=== PATIENT | male | born 1970 | race Caucasian/White ===

== ENCOUNTER 2020-03-29 11:06 | Day surgery (SDC) | payer OTHER ==
[2020-03-25 08:23] VITALS: BMI 44.9
[~2020-03-29 11:06] MED LIST: LACTATED RINGERS 1,000 ML IV SCH; LIDOCAINE 1% (10MG/ML) FOR IV START INTRADERMA PRN
[2020-03-29 11:39] VITALS: TEMP 97.7
[2020-03-29] MEDS ORDERED: PROPOFOL 10 MG/ML 20 ML VIAL IV ONE (12:08)
--- NOTE | 2020-03-29 12:38 | P.PCN ---
Date of Procedure: 03/29/20 Description of Procedure: BRIEF HISTORY: Patient is a 49-year-old male presenting for outpatient colonoscopy for screening for malignant neoplasm of the colon. No prior colonoscopy reported. No change in bowel habits, abdominal pain or family history of colon cancer. PROCEDURE PERFORMED: Colonoscopy with polypectomy. PREOPERATIVE DIAGNOSIS: Screening for malignant neoplasm colon, no prior colonoscopy. ESTIMATED BLOOD LOSS: Minimal. IV sedation per Anesthesia. PROCEDURE: After informed consent was obtained, the patient, was brought into the endoscopy unit. IV sedation was administered by Anesthesia under continuous monitoring. Digital rectal examination was normal. Initially the Olympus CF-190 flexible video colonoscope was then inserted in the rectum, gradually advanced into the cecum without any difficulty. Careful examination was performed as the scope was gradually being withdrawn. Ileocecal valve and the appendiceal orifice were visualized and appeared normal. Prep was excellent. Mucosa of the cecum, ascending colon, transverse colon, descending colon, sigmoid colon, and rectum appeared normal. Diminutive polyps measuring 2-3 mm in size removed with cold forcep polypectomy from the cecum, sigmoid colon, and 2 from the descending colon. A few scattered diverticula noted throughout the colon. Retroflexion was performed in the rectum and no lesions were seen. The patient tolerated the procedure well. IMPRESSION: 4 diminutive polyps removed with cold forcep polypectomy, from the sigmoid, cecum and 2 from the descending colon. Mild pandiverticulosis. RECOMMENDATIONS: Findings of this examination were discussed with the patient. Okay to resume diet. Okay to resume medications. Await pathology from polypectomy. Would recommend repeat colonoscopy in 5 years for personal history of colon polyp.
[2020-03-29 12:41] VITALS: RESP 20
[2020-03-29 12:55] VITALS: BP 114/80; PULSE 80
== END 2020-03-29 13:29 | disposition home or self-care (01) ==
LOC: ORWHC2ENDO 11:06
PROVIDERS: ATTEND Internal Medicine
DX: Z12.11 Encounter for screening for malignant neoplasm of colon (principal); D12.0 Benign neoplasm of cecum; D12.4 Benign neoplasm of descending colon; D12.5 Benign neoplasm of sigmoid colon; K57.30 Diverticulosis of large intestine without perforation or abscess without bleeding; I10 Essential (primary) hypertension; F17.210 Nicotine dependence, cigarettes, uncomplicated; Z79.899 Other long term (current) drug therapy
CPT/HCPCS: 88305; 45380; J2704

== ENCOUNTER → 2023-03-13 | Outpatient (CLI) | payer OTHER ==
[2023-03-13 15:27] LABS: ALT 32 U/L (10-49); AST 20 U/L (14-35); Chol/HDL Ratio 3.83 Ratio; LDL Cholesterol,Calculated 77.2 mg/dL (0.0-131.0)
== END | disposition home or self-care (01) ==
LOC: LABWHC1 08:03
PROVIDERS: ATTEND Internal Medicine Interventional Cardiology
DX: E78.2 Mixed hyperlipidemia (principal)
CPT/HCPCS: 36415; 80061; 84450; 84460

== ENCOUNTER 2023-03-15 11:28 | Day surgery (SDC) | payer OTHER ==
[~2023-03-15 11:28] MED LIST changes: +ACETAMINOPHEN TAB 500 MG TAB PO PRN; +DEXAMETHASONE SOD PHOSPHATE 4 MG/ML 1 ML VIAL IV ONE; +HEPARIN SODIUM,PORCINE/PF 5,000 UNIT/0.5 ML SYRINGE SQ PRN; +HYDROmorphone 0.5 MG/0.5 ML SYRINGE IVP PRN; -LIDOCAINE 1% (10MG/ML) FOR IV START INTRADERMA PRN; +ONDANSETRON 4 MG/2 ML VIAL IVP ONE; +ONDANSETRON 4 MG/2 ML VIAL IVP PRN; +ceFAZolin 3 GM in SODIUM CHLORIDE 0.9% 100 ML IVPB PRN
[2023-03-15] MEDS ORDERED: MIDAZOLAM 2 MG/2 ML VIAL IVP ONE (12:37)
[2023-03-15] MEDS ORDERED: fentaNYL (PF) 50 MCG/ML 2 ML AMP IVP ONE (12:37)
[2023-03-15] MEDS ORDERED: TAMSULOSIN 0.4 MG CAP.ER.24H PO STA (12:41)
[2023-03-15] MEDS ORDERED: fentaNYL (PF) 50 MCG/ML 2 ML AMP ONE (12:52)
[2023-03-15] MEDS ORDERED: ROCURONIUM 10 MG/ML (5 ML VIAL) IV ONE (12:52)
[2023-03-15] MEDS ORDERED: GLYCOPYRROLATE 0.2 MG/ML 2 ML VIAL ONE (12:52)
[2023-03-15] MEDS ORDERED: SUCCINYLCHOLINE CHLORIDE 200 MG/10 ML VIAL IV ONE (12:52)
[2023-03-15] MEDS ORDERED: SODIUM CHLORIDE 0.9% (PF) 10 ML VIAL ONE (12:52)
[2023-03-15] MEDS ORDERED: LIDOCAINE 4% LTA KIT (4 ML) TOPICAL ONE (12:52)
[2023-03-15] MEDS ORDERED: NEOSTIGMINE 1 MG/ML 10 ML VIAL ONE (12:52)
[2023-03-15] MEDS ORDERED: ROPIVACAINE 5 MG/ML 30 ML VIAL ONE (12:52)
[2023-03-15] MEDS ORDERED: LIDOCAINE 2% INJ 20 MG/ML (2 ML VIAL) ONE (12:52)
[2023-03-15] MEDS ORDERED: PROPOFOL 10 MG/ML 20 ML VIAL IV ONE (12:52)
[2023-03-15] MEDS ORDERED: HYDROmorphone (PF) 1 MG/ML ONE (12:52)
--- NOTE | 2023-03-15 12:52 | P.ANPRN ---
Procedure Note - Anesthesia - Nerve Block Performed Bilateral Rectus Abdominis Single Time Out Performed: Yes Date of Procedure: 03/15/23 Procedure Start Time: 12:36 Procedure Stop Time: 12:50 Location of Patient: PreOp Indication: Analgesia, Requested by Surgeon Specifically requested for management of pain by DrMarcy: Pippa Kaplan Sedation Type: Sedate with meaningful contact maintained Preparation: Sterile Prep Position: Supine Needle Types: Pajunk Needle Gauge: 21 Ultrasound used to visualize needle placement: Yes Ultrasound used to observe medication spread: Yes Injectate: 0.5% Ropivacaine (see comment for volume) (50 mL (25 mL/side)) Blood Aspirated: No Pain Paresthesia on Injection Noted: No Resistance on Injection: Normal Image Stored and Saved: Yes Events: Uneventful and Well Tolerated
[2023-03-15 12:57] LABS: Basophils # (A) 0.1 k/uL (0-0.2); Basophils % (A) 0 %; Eosinophils # (A) 0.6 k/uL (0-0.7); Eosinophils % (A) 3 %; HCT 45.8 % (39.0-53.0); HGB 14.8 gm/dL (13.0-17.5); Lymphocytes # (A) 3.4 k/uL (1.0-4.8); Lymphocytes % (A) 20 %; MCH 29.6 pg (25.0-35.0); MCHC 32.3 g/dL (31.0-37.0); MCV 91.6 fL (80.0-100.0); Mean Platelet Volume 6.9; Monocytes # (A) 1.1 k/uL (0-1.0); Monocytes % (A) 6 %; Neutrophils # (A) 11.7 k/uL (1.3-7.7); Neutrophils % (A) 69 %; Platelet Count 323 k/uL (150-450); RDW 12.8 % (11.5-15.5)
[2023-03-15 13:10] LABS: African American GFR (CKD) >90 (>60 ml/min/1.73 sqM); Anion Gap 7 mmol/L; Blood Urea Nitrogen 11 mg/dL (9-20); Calcium 9.2 mg/dL (8.4-10.2); Carbon Dioxide 28 mmol/L (22-30); Chloride 104 mmol/L (98-107); Glucose 96 mg/dL (74-99); Non-African American GFR(CKD) >90 (>60 ml/min/1.73 sqM); Potassium 4.7 mmol/L (3.5-5.1); Sodium 139 mmol/L (137-145)
[2023-03-15] MEDS ORDERED: BUPIVACAINE (PF) 0.25% 30 ML VIAL SQ ONE (13:24)
[2023-03-15] MEDS ORDERED: LACTATED RINGERS 1,000 ML IV ONE (14:15)
[2023-03-15 14:51] VITALS: TEMP 96.9
--- NOTE | 2023-03-15 15:41 | P.OP ---
Date of Procedure: 03/15/23 Description of Procedure: No mesh due to leukocytosis, white blood cell count over 17,000. Large incarcerated mass 15 cm x 6 cm resected from umbilical area Fatty liver disease SURGEON: PIPPA KAPLAN MD PREOPERATIVE DIAGNOSES: 1. Initial umbilical hernia with incarceration 2. Diabetes type 2, non-insulin dependent 3. Morbid obesity due to excess calories, BMI 39.6 4. Obstructive sleep apnea POSTOPERATIVE DIAGNOSES: 1. Initial umbilical hernia with incarceration, 1 cm 2. Diabetes type 2, non-insulin dependent 3. Morbid obesity due to excess calories, BMI 39.6 4. Obstructive sleep apnea OPERATION: 1. Robotic-assisted da Kaylan Xi laparoscopic repair of initial incarcerated umbilical hernia 1 cm without mesh ANESTHESIA: General with local ESTIMATED BLOOD LOSS: 10 mL. SPECIMENS: None. COMPLICATIONS: None. INDICATIONS: The patient is a 54-year-old male who presents with initial umbilical hernia. Surgical intervention with laparoscopic versus robotic and open techniques were reviewed. Placement of mesh was also reviewed. Benefits and risks were thoroughly described. Informed consent was obtained. DESCRIPTION OF PROCEDURE: The patient was brought into the operating room and laid in supine position. After general induction, the abdomen had been prepped and draped in standard sterile fashion. Ioban draping was also placed. Prior to incision, a timeout protocol was confirmed with surgical team regarding the patient's name including procedures to be performed. The robot was primed prior to the procedure. A field block using local anesthetic was placed along hernia site including the proposed port sites. Initial incision was made with an #11 blade along the left upper quadrant. A 0 degree 5 mm laparoscopic trocar entry was performed. Diagnostic laparoscopy demonstrated an incarcerated umbilical hernia. Three 8 mm trocars were placed along the right lateral abdominal wall. Placements of the ports were 15 cm from the target anatomy and 9 cm apart. The Call Britanniai Xi robot was previously primed, prepped and draped then docked along the left side of the patient. I then sat at the robot Da Kaylan Xi console where working arms of the robot were scissors, needle mobile lounge driver or operator, and graspers placed by the registered dental assistant rda. Attention was brought to the umbilicus where an incarcerated umbilical hernia was identified containing fat and omentum. The incarcerated contents was reduced as the peritoneal fat was cleaned from the abdominal wall. Next, hemostasis was checked with cautery. The hernia defect of 1-cm was oversewn using #1 VLOC with fascial imbrication 3. A final endoscopic imaging was obtained. All instruments and pneumoperitoneum were evacuated from the abdominal cavity. The da Kaylan Xi robot was undocked from the patient. I re-scrubbed into the case for closure of incisions. At the umbilicus, the skin was oversewn with 4-0 Monocryl. An umbilical dressing using 4 x 4 and Tegaderm was placed. The incisions were reapproximated using 4-0 Monocryl in an interrupted subcuticular fashion. Exofin liquid glue was applied to the skin after cleansing the skin with normal saline and dilute hydrogen peroxide. An abdominal binder was placed. At the end of the procedure, needle, sponge, and instrument count had been verified correct by surgical rn. The patient was taken to the postanesthesia care unit in stable condition. FINDINGS: 1. Initial incarcerated umbilical hernia, 1 cm with contents of pre-peritoneal fat. Plan - Discharge Summary Discharge Rx Participant: No New Discharge Prescriptions: New Acetaminophen Tab [Tylenol Tab] 1,000 mg PO Q6HR PRN #30 tablet PRN Reason: Pain Simethicone [Gas-X] 125 mg PO AC-TID PRN #20 capsule PRN Reason: Pain Ibuprofen [Motrin] 600 mg PO Q8HR PRN #30 tab PRN Reason: Pain Continue hydroCHLOROthiazide 25 mg PO QAM Loratadine 10 mg PO DAILY Aspirin [Adult Low Dose Aspirin EC] 81 mg PO DAILY Atorvastatin [Lipitor] 20 mg PO QAM Discontinued Ibuprofen [Motrin] 400 - 800 mg PO Q6H PRN PRN Reason: Pain Discharge Medication List Aspirin [Adult Low Dose Aspirin EC] 81 mg PO DAILY 03/09/23 [History] Atorvastatin [Lipitor] 20 mg PO QAM 03/09/23 [History] Loratadine 10 mg PO DAILY 03/09/23 [History] hydroCHLOROthiazide 25 mg PO QAM 03/09/23 [History] Acetaminophen Tab [Tylenol Tab] 1,000 mg PO Q6HR PRN #30 tablet 03/15/23 [Rx] Ibuprofen [Motrin] 600 mg PO Q8HR PRN #30 tab 03/15/23 [Rx] Simethicone [Gas-X] 125 mg PO AC-TID PRN #20 capsule 03/15/23 [Rx] Follow up Appointment(s)/Referral(s): Pippa Kaplan MD [STAFF PHYSICIAN] - 03/27/23 (TELEHEALTH __ DR CALLS YOU) Patient Instructions/Handouts: Laparoscopic Herniorrhaphy (IP), Ventral Hernia Repair (DC), Abdominal Binder (DC), *Surgery [facility] - Managing Your Pain After Surgery Without Opioids Activity/Diet/Wound Care/Special Instructions: TELEHEALTH - WILL CALL YOU BETWEEN 8 am to 8 pm No lifting for 4 pounds in 4 weeks, Apr 15 Using antibacterial soap. May shower. No bathtub soaks for 2 weeks, Mar 29 Wear abdominal binder daily for comfort except for showering. Use ice along incisions for today to prevent swelling. Use Tylenol, simethicone and ibuprofen or Aleve scheduled for the next 24-48 hours for best pain relief. Discharge Disposition: HOME SELF-CARE
[2023-03-15 16:05] VITALS: BP 148/86; PULSE 83; RESP 18
== END 2023-03-15 16:35 | disposition home or self-care (01) ==
LOC: OR 11:28
PROVIDERS: ATTEND Surgery Plastic and Reconstructive Surgery
DX: K42.0 Umbilical hernia with obstruction, without gangrene (principal); E11.9 Type 2 diabetes mellitus without complications; E66.01 Morbid (severe) obesity due to excess calories; Z68.39 Body mass index [BMI] 39.0-39.9, adult; G47.33 Obstructive sleep apnea (adult) (pediatric); I10 Essential (primary) hypertension; E78.5 Hyperlipidemia, unspecified; Z96.651 Presence of right artificial knee joint; Z79.1 Long term (current) use of non-steroidal anti-inflammatories (NSAID); Z79.82 Long term (current) use of aspirin; Z79.899 Other long term (current) drug therapy
CPT/HCPCS: 49592; 64488; 80048; 85025; 88302; J2250; J0330; J1100; J2710; J0690; J2405; J3010; J1170; J2795; J2704; J1644; J2001; 64486

== ENCOUNTER → 2024-06-16 | Outpatient (CLI) | payer MEDICARE, OTHER ==
--- NOTE | 2024-06-16 09:24 | CTL ---
EXAMINATION TYPE: CT Low Dose Lung DATE OF EXAM ORDERED: 06/16/2024 HISTORY: 54-year-old male with Z1 2.2, smoker with a 20 pack-year history. Lung cancer screening CT DLP: 94.[address] CTDI: 2.6 mGy Automated exposure control for dose reduction was used. SCREENING VISIT: COMPARISON: TECHNIQUE: Low dose computed tomography scan was performed through the chest at 1 mm thick sections a nd reconstructed images in multiple planes at 1 mm and [address] DIAGNOSTIC QUALITY: Satisfactory FINDINGS: The heart is normal size without pericardial effusion. Proximal LAD and proximal circumflex coronary calcifications are present. There are normal caliber with conventional branching anatomy. No thoracic lymphadenopathy by CT size criteria. Minimal emphysematous change. No consolidation or pleural effusion. 3 mm posterior right upper lobe p ulmonary nodule remains unchanged. No new suspicious pulmonary nodule. Visualized upper abdomen shows no gross abnormality. Bones: DISH throughout the thoracic spine. IMPRESSION: 1. LungRADS 2, benign. No new suspicious pulmonary nodules. 2. COPD with minimal emphysema. CT LUNG RAD AND CT CHEST RECOMMENDATION: Lung-Rad 2 Benign Appearance or Behavior: Continue annual sc reening with LDCT in 12 months. S Modifier (other clinically significant findings): None [facility], , 06/16/2024 9:22 AM
== END | disposition home or self-care (01) ==
LOC: RADCTMAIN 06:44
PROVIDERS: ATTEND Family Medicine
CPT/HCPCS: 71271

== ENCOUNTER → 2024-10-21 | Outpatient (CLI) | payer MEDICARE, OTHER | END | disposition home or self-care (01) | LOC: LABPAT 11:06 | PROVIDERS: ATTEND Orthopaedic Surgery | DX: Z01.812 Encounter for preprocedural laboratory examination (principal); M48.061 Spinal stenosis, lumbar region without neurogenic claudication; Z22.322 Carrier or suspected carrier of Methicillin resistant Staphylococcus aureus | CPT/HCPCS: 86850; 86900; 86901; 87070 ==

== ENCOUNTER 2024-10-23 10:38 | Day surgery (SDC) | payer MEDICARE, OTHER ==
[2024-10-21 10:09] VITALS: BMI 41.3
[~2024-10-23 10:38] MED LIST changes: -ACETAMINOPHEN TAB 500 MG TAB PO PRN; -DEXAMETHASONE SOD PHOSPHATE 4 MG/ML 1 ML VIAL IV ONE; -HEPARIN SODIUM,PORCINE/PF 5,000 UNIT/0.5 ML SYRINGE SQ PRN; +LIDOCAINE 1% (10MG/ML) FOR IV START INTRADERMA PRN; +MIDAZOLAM 2 MG/2 ML VIAL IV PRN; -ONDANSETRON 4 MG/2 ML VIAL IVP ONE; +TRANEXAMIC 1,000 MG/100ML-NACL 1,000 MG in SALINE 1 100ML.BAG IVPB PRN; -ceFAZolin 3 GM in SODIUM CHLORIDE 0.9% 100 ML IVPB PRN; +fentaNYL (PF) 50 MCG/ML 2 ML AMP IVP PRN
[2024-10-23] MEDS: IV FLUID CONTINUATION 1,000 ML IV ONE ×2 (11:20)
[2024-10-23] MEDS: GABAPENTIN 300 MG CAP PO PRN (11:28)
[2024-10-23] MEDS: ACETAMINOPHEN TAB 500 MG TAB PO PRN (11:28)
[2024-10-23] MEDS: ONDANSETRON 4 MG/2 ML VIAL IVP ONE (11:30)
[2024-10-23] MEDS: DEXAMETHASONE SOD PHOSPHATE 4 MG/ML 1 ML VIAL IV ONE (11:31)
--- NOTE | 2024-10-23 12:19 | P.HPOR ---
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 Imaging reveals L4-5 spondylosis with moderate to severe central and foraminal stenosis, particularly pronounced on the left side, with ligamental overgrowth and facet hypertrophy causing lateral recess stenosis. The patient reports significant functional limitations, including difficulty with walking, ddx-[id number]-[id number] transitions, and stairs, occasionally requiring crutch assistance. Conservative management with NSAIDs and heat/ice therapy has been unsuccessful. Given the progressive neurological symptoms and imaging findings, surgical intervention via L4-5 laminoforaminotomy LEFT MIS has been recommended, pending medical clearance from PCP. Patient has been thoroughly counseled on surgical risks and benefits. DEMOGRAPHICS: Age: 54 year Height: 6'1" Weight: 319 lbs BP:126/75 BMI: 42.09 kg/m2 Occupation: [employer]: lumbar pain VAS: 4 HISTORY: Mr. Kuhn presents to the office today, 09/18/24, for an evaluation of his lumbar pain. Patient reports pain across the low back that radiates into the bilateral lower extremities. He also notes a sharp pain in his tailbone area. Patient states is pain is increased with walking, sit to stand, sitting, and stairs. He notes weakness of the bilateral legs that makes it difficult to walk. Patient states he has had to use crutches at times due to his lower extremity weakness. He has trialed below listed treatment modalities without resolution of his symptoms. Patient is currently taking Motrin and Tylenol and using heat/ice without resolution of his symptoms. He ambulates independently today. * Patient denies any f/c/sob/cp, perineal numbness or tingling, bowel, or bladder incontinence/retention. * The patients past social, medical, family, surgical history, as well as review of systems, have been reviewed. Please refer to the History and Physical form that has been scanned into our electronic medical record system. * 16 points review of systems completed and as stated in HPI, all other systems reviewed are negative. PAST TREATMENTS: PAST IMAGING: -YES, xray and MRI - TRAUMA RELATED: -NO - WORK RELATED: -NO - PT IN LAST 6 MONTHS: -YES, 1 month ago with no relief - PHYSICIAN DIRECTED HOME EXERCISE PROGRAM: -YES - ACTIVITY MODIFICATION: -YES - MEDICATIONS: -YES, Motrin and Tylenol - ALTERNATIVE INTERVENTIONS (CHIROPRACTIC, ACCUPUNCTURE, MASSAGE, RICE): -YES, chirporactic treatment 4 weeks ago with no relief - BRACING: -NO - INJECTIONS (JOANNA, TF, RFA): -YES, [address] Walker with some relief - MEDICAL HISTORY: Past Medical History: REVIEWED STATED IN CHART Past Surgical History: REVIEWED STATED IN CHART Social History: REVIEWED STATED IN CHART SMOKING: Never smoker ETOH: None SUBSTANCES: None Family History: REVIEWED STATED IN CHART P1 Current Medications: Rx: IBUPROFEN 200mg ORAL , Ref: 0 Instructions: Take 4 ORAL as needed. Rx: indomethacin ER 75 mg capsule,extended release Ref: 0 Instructions: take 1 capsule (75 mg) by oral route 2 times per day with food as needed Rx: meloxicam 15 mg tablet Ref: 2 Instructions: take 1 tablet (15 mg) by oral route once daily as needed P1 PHYSICAL EXAM: General: AOX3, NAD, Well hydrate, well nourished, in no acute distress HEENT: No lumps or masses Extremities: No color changes, no pooling INTEGUMENT: Appearance: Normal color and turgor Surgical Incisions: N/A Hairy Patches: ABSENT Dorsal Skin Dimples: Normal [employer] spots: ABSENT PALPATION: TTP Midline: NO Paracervical: NO Parathoracic: NO Paralumbar: YES SIJ TESTING (Juan Manuel's, FABER4, Compression, Distraction, Thigh Thrust, Hip Thrust): TESTED * POSITIVE FINDINGS: NEGATIVE FINDINGS: Juan Manuel's, FABER4, Compression, Distraction, Thigh Thrust, Hip Thrust POSTURAL BALANCE: Coronal: BALANCED Sagittal: BALANCED Shoulder height: LEVEL Pelvic Girdle: LEVEL ROM AND APPEARANCE: Neck: UNRESTRICTED Lumbar: RESTRICTED WITH PAIN Shoulders: Symmetrical Hips: Symmetrical Knees: Symmetrical Hands: Symmetrical Feet: Symmetrical VASCULAR STATUS: PALPABLE PULSES B/L UE AND LE 2/4 RAD/ULNAR/DP/PT Edema: NONE NEUROLOGICAL EXAMINATION: Mental Status: Awake, alert, fully oriented with normal attention, concentration, and memory. Fluent appropriate speech. CRANIAL NERVES: I: Olfactory not assessed. II: Visual acuity normal, no visual field deficit noted with confrontation. III, IV: Normal pupillary reflexes & intact extraocular movements without nystagmus. V, : Intact symmetrical facial sensation. VII: Intact symmetrical facial motor movement: Hearing intact. IX, X: Intact gag, swallow, & normal voice. XI: Sternocleidomastoid, trapezius function intact. XII: Tongue midline with normal movements. TENSIONING: * L'HERMITTE'S SIG:NEG SPURLUNG'S SIGN:NEG UPPER EXTREMITY TENSIONING SIGNS: NEG CUBITAL TUNNEL COMPRESSION:NEG TINELS AT WRIST:NEG STRAIGH LEG RAISE:POS CONTRALATERAL STRAIGHT LEG RAISE: NEG MOTOR EXAM (0-5/5, NT) Muscle appearance: Symmetrical, without signs of atrophy or dystrophy UPPER EXTREMITY RIGHT LEFT Shoulder Abduction 5 5 Biceps 5 5 Triceps 5 5 Wrist Extension 5 5 Hand Intrinsics 5 5 Tailor Garment Fitter 5 5 LOWER EXTREMITY RIGHT LEFT Hip Flexion 4+ 4+ Knee Extension 4+ 4+ Knee Flexion 4+ 4 Dorsiflexion 4 4 Plantarflexion 4 4 EHL 4- 4 FHL 4 4 REFLEXES (0-4/2, NT): RIGHT LEFT Bicep 2 2 Brachioradialis 2 2 Triceps 2 2 Patellar 2 2 Achilles 2 2 PATHOLOGICAL REFLEXES: RIGHT LEFT JONES'S ABSENT ABSENT CLONUS ABSENT ABSENT BABINSKI ABSENT ABSENT RECTAL TONE: INTACT/NT SENSATION (0-4, NT): Sensation intact to LT and Pain * C5-T1 distribution BUE * L2-S2 distribution BLE *Exceptions below* DERMATOMAL DEFICIT/RADICULAR PATTERN: L4-5 BLE GAIT AND FUNCTIONAL EVALUATION: AMBULATORY AID Crutches ROMBERG'S TEST INTACT HAND AND FINGER DEXTERITY INTACT YES DYSDIADOCHOKINESIA EXAM NEG B/L YES TOE/HEEL WALK INTACT WITH GOOD BALANCE NO SQUAT AND RISE W/O ASSISTANCE TO 60 DEG KNEE FLEXION NO SINGLE LEG STANCE NOT ABLE [place]G NEG IMAGING: XRAY Date: 09/18/24 Location: [facility] Region: Lumbar and Pelvis Views: MV IMAGES ARE REVIEWED WITH THE PATIENT IN OFFICE AND DEMONSTRATE THE FOLLOWING: FINDINGS: L4-5 SPONDYLOSIS WITH DISC HEIGHT COLLAPSE, FACET ARTHROSIS AND FLATTENED LL DUE TO THE COLLAPSE. THERE IS MODERATE L5-S1 SPONDYLOSIS NOTED WELL. NO ACUTE FRACTURES NOTED. NO LESIONS NOTED. PELVIS SHOWS CONGRUENT LEVEL PELVIS. NO FRACTURES. MRI Date: 06/02/24 Location: [facility] Region: Lumbar Contrast: N IMAGES ARE REVIEWED WITH THE PATIENT IN OFFICE AND DEMONSTRATE THE FOLLOWING: FINDINGS: L4-5 SPONDYLOSIS WITH MODERATE TO SEVERE CENTRAL AND FORAMINAL STENOSIS RELATED TO LIGAMENTAL OVERGROWTH, FACET HYPERTROPHY CAUSING LATERAL RECESS STENOSIS WELL. THERE IS DISC COLLAPSE CAUSING DEGENERATIVE DISC HERNIATION AND CENTRAL STENOSIS RELATED TO THIS THAT IS MODERATE TO SEVERE. THERE IS GREATER LEFT THAN RIGHT FORAMINAL STENOSIS. L5-S1 SHOWS MILD STENOSSIS WITH SPONDYLOTIC FFEATURES. L1-4 SHOWS REASONABLE DISC HEIGHTS AND ALIGNMENT. NO FRACTURES OR LESIONS NOTED. IMPRESSION: It was my pleasure to have seen and examined Erwin. I reviewed the patient's clinical syndrome, physical findings, and imaging studies during the appointment today. It is my impression that the patient has a diagnosis of. 1.L4-5 spondylosis with stenosis 2.Left lower extremity radiculopathy 3. Low back pain PLAN: DISCUSSION: -I have discussed with the patient their clinical signs and symptoms, imaging, and treatment options. We have discussed risks, benefits, potential outcomes and natural course as pertains top their issues. The patient understands and would like to proceed as follows below: SURGICAL RECOMMENDATION -L4-5 laminoforaminotomy LEFT MIS THERAPIES -Cont. with home exercises and home PT exercises as able -Cont. with Heat/Ice as warranted -Cont. with supplementation Vit D, Vit C, Ca2+, High protein diet -OK for massage or other alternative treatment modalities as able. If it exacerb ates your sx do not continue ACTIVITY -Recommend walking up to 30 min 2x daily on a flat easy surface with good support. -WORK STATUS: Patient to remain off work 4-6 weeks post-operation MEDICATIONS -Take as directed -Cont. home medications as directed by your PCP. Check with your PCP for any medication interactions or issues if needed. IMAGING -N/A INJECTIONS -N/A Spine Surgery Risk Review Mr. Kuhn is presenting for evaluation of lumbar pain. It was my pleasure to have seen and examined Mr. Kuhn. In our visit today we have had a chance to go over subjective complaints, physical examination findings and treatments including the natural course history without intervention and various interventional options. The patients imaging demonstrates: XRAY AND MRI FINDINGS SHOW L4-5 SPONDYLOSIS WITH MODERATE TO SEVERE CENTRAL AND FORAMINAL STENOSIS RELATED TO LIGAMENTAL OVERGROWTH, FACET HYPERTROPHY CAUSING LATERAL RECESS STENOSIS WELL. THERE IS DISC COLLAPSE CAUSING DEGENERATIVE DISC HERNIATION AND CENTRAL STENOSIS RELATED TO THIS THAT IS MODERATE TO SEVERE. THERE IS GREATER LEFT THAN RIGHT FORAMINAL STENOSIS. L5-S1 SHOWS MILD STENOSSIS WITH SPONDYLOTIC FFEATURES. L1-4 SHOWS REASONABLE DISC HEIGHTS AND ALIGNMENT. NO FRACTURES OR LESIONS NOTED. On physical exam, Mr. Kuhn demonstrates: Patient reports pain across the low back that radiates into the bilateral lower extremities. He also notes a sharp pain in his tailbone area. Patient states is pain is increased with walking, sit to stand, sitting, and stairs. He notes weakness of the bilateral legs that makes it hard to walk. Patient states he even has to use crutches at times due to his lower extremity weakness. Patient is currently taking Motrin and Tylenol and suing heat/ice without resolution of his symptoms. He ambulates independently today. I have explained to the patient that as their condition progresses it will cause further neurological deficits and eventual paralysis. Based on the patients imaging, physical exam, and the rapid progression and disabling nature of their symptoms, at this time I recommend surgery in the form of a: L4-5 lami noforaminotomy LEFT MIS. I discussed the risk and benefits of this procedure at length with Mr. Kuhn. The patient agreed to considered pursuing the procedure abovementioned. Prior to surgery, she should follow up with her PCP (Cardio, ID, IM etc) for clearance. Questions were invited and answered, and the patient wishes to proceed as outlined below. Currently, I am recommendin.L4-5 laminoforaminotomy LEFT MIS 2.Follow up with PCP for surgical clearance 3.Review of surgical risks and benefits as well as an educational packet on the proposed surgical procedure. Risks: All surgical procedures come with inherent risks, including those related to positioning, anesthesia, intraoperative findings, and postoperative complications. It is important to understand that surgery does not come with any guarantee of a successful outcome as complications and adverse events are always possible. The patient was given a handout in office today discussing the surgical procedure and risks associated with the intervention, both of which were discussed with the patient. These risks include but are not limited to the following: * Experiencing same, different or even worse symptoms in back, neck, arms, or legs compared to before surgery. Requiring further surgery or other forms of treatment presently or at some time in the future at same or other levels of the intended spine surgery. On an extreme but fortunately relatively rare basis severe complication such as blindness, stroke, heart attack, temporary and/or permanent nerve injury, paralysis, coma, or may occur, sometimes without known explanation. Surgical complications may include but are not limited to risk of infection, fluid accumulation in the surgical dissection site, including a seroma or hematoma, that requires additional surgery, wound drainage, bleeding, new numbness or weakness, vision changes/loss, spinal fluid leakage, non-healing and/or infected incision, headaches, difficulty or inability to swallow, hoarseness, hemopneumothorax, pneumothorax, impotence, retrograde ejaculation, vaginal dryness; injury to nerves, spinal cord, blood vessels, lymphatics or other vital organs (i.e., bowel injury, injury to the great vessels); heterotopic bone formation; complications related to the hardware such as screws, rods, cages including misplaced hardware, device failure, instrumentation at the wrong spine level, hardware fracture/breakage, or hardware loosening; vertebral failure of the spinal column above or below the newly placed hardware; retained surgical instrumentations or devices and the need for further surgery. * Medical risks of the planned spine surgery include but are not limited to generalized Infections to the whole body or local areas outside of the surgical site (sepsis), heart attack, bleeding, anaphylaxis, meningitis, seizu re, epilepsy, hearing loss, burn evans, laceration of the head or other areas of the body, bruising, hypersensitivity of the skin, bladder over distension; allergic reaction; shoulder injury related to positioning; fat, blood and air clots to other areas of the body like heart, lungs, brain; failure of internal organs such as lungs, kidneys, liver and excessive bleeding. If blood transfusions are necessary, note that transfusions may cause intolerance reactions such as anaphylaxis or other complex reactions. Despite best efforts, the results of spine surgery might not heal in terms of bone, soft tissues such as skin, fascia, ligaments, and joints. Additionally, in order to achieve best possible results, spine surgery may be carried out beyond the initially planned levels and involve decompression, fusion including insertion of hardware at levels other than the original intended area of surgical interest change some portions of the procedure in order to ensure the best possible outcomes. With spine surgery and spinal fusion, there are different off label uses of instrumentation (devices, implants and hardware) as well as biological substances (bone morphogenic proteins, demineralized bone matrix) as well as using extra bone from allograft sources (i.e. cadaver bone) or autograft (iliac crest bone, ribs, or the spine itself). The patient has been given information about these practices and their inherent risks and benefits. [facility] is an educational center that serves as a training facility for neurosurgical and orthopedic BUSINESS INTELLIGENCE ADMINISTRATOR and Nursing students. Physician assistants are medically trained surgical providers who function in the outpatient, inpatient, and operating room setting under the direct supervision of the attending surgeon. [facility] has multiple operating rooms with single and overlapping rooms running daily. They currently function under the required guidelines as produced by the [facility] Finance Committee with regards to the overlapping rooms and will continue to comply with changes to this policy as they occur. The requirements include and are complied with as follows: (1) the critical portions of the overlapping rooms will not occur at the same time, (2) the attending physician will be physically present during the critical portions of the procedure and immediately available during the entire case, and (3) a back-up a ttending is designated should the primary attending not be immediately available. The patient has had a chance to review all the listed information, has been given print outs detailing this information, and has had all his/her questions answered to their satisfaction. It was my pleasure to have seen and examined Mr. Kuhn. In our visit today we have had a chance to go over my understanding of our patient's current condition, the natural course history without intervention and various interventional options. Questions were invited and answered, and the patient wishes to proceed as outlined above. I have seen and examined the patient for 25 minutes and we have spent more than 50% of the time in repeat and detailed counseling about the patient's condition, its natural course history with out and as much as can be predicted with surgery and re-review of various surgical treatment options. In conclusion, Mr. Kuhn requested we proceed with the above suggested surgery and are willing to accept risks and limitations of the suggested surgery as nature of the disease process and our best attempts at treatment for the condition. MEDICAL NECESSITY NOTE: Based on objective findings from imaging studies and physical examination, Mr. Kuhn demonstrates significant neurological compromise due to L4-5 spondylosis with moderate to severe central and foraminal stenosis, particularly pronounced on the left side. The patient's condition has resulted in functional decline, manifesting as bilateral lower extremity weakness requiring occasional ambulatory assistance, radiating pain, and difficulty with basic mobility tasks including walking and transitioning from sitting to standing. Conservative management including NSAIDs, heat/ice therapy, and activity modification has failed to provide meaningful symptom relief. The progressive nature of his neurological symptoms, combined with the severity of stenosis demonstrated on imaging, indicates a clear medical necessity for surgical intervention to prevent further neurological deterioration and potential permanent nerve damage. SURGICAL RATIONALE NOTE: The recommended L4-5 laminoforaminotomy LEFT MIS procedure is specifically chosen to address the patient's pathology while minimizing surgical trauma. This targeted decompressive approach will address the left-sided foraminal stenosis that is causing significant neurological compromise while preserving spinal stability. The minimally invasive technique offers advantages including smaller incision, reduced muscle trauma, decreased post-operative pain, and potentially faster recovery compared to traditional open approaches. 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 The progressive nature of symptoms, failed conservative management, and correlation between clinical presentation and imaging findings strongly support this surgical approach as the most appropriate intervention to prevent further neurological deterioration. FOLLOW UP: PRE-OP PLAN AT NEXT VISIT: RECHECK PATIENT EDUCATION: Medications Reviewed: YES In our visit today Mr. Kuhn and I have had a chance to go over my understanding of the patient's current condition, the natural course history without intervention and various interventional options. Questions were invited and answered, and the patient wishes to proceed as outlined above. I will be sure to keep you updated after Mr. Kuhn returns here for further follow-up. Thank you again for your referral. Please do not hesitate to contact me if you have any further questions. Signed and authenticated by: [employer] [facility] [address] [place] [address] [address] [address] . This message is confidential, intended only for the named recipient(s) and may contain information that is privileged or exempt from disclosure under applicable law. If you are not the intended recipient(s), you are notified that the dissemination, distribution or copying of this information is prohibited. If you received this message in error, please notify the sender then delete this message. #Orders: Knee, Lt 2v xray # SIGNED BY Amos Ayala ([email or web address])10/03/2024 10:41A Past Medical History Past Medical History: Hyperlipidemia, Hypertension, Osteoarthritis (OA) History of Any Multi-Drug Resistant Organisms: None Reported Past Surgical History: Hernia Repair, Joint Replacement Additional Past Surgical History / Comment(s): RIGHT KNEE REPLACED @ [facility], [place]. LT TKA, COLONOSCOPY,EGD Past Anesthesia/Blood Transfusion Reactions: No Reported Reaction Smoking Status: Current every day smoker - Past Family History Mother Family Medical History: No Reported History Medications and Allergies Home Medications Medication Instructions Recorded Confirmed Type Aspirin [Adult Low Dose Aspirin EC] 81 mg PO DAILY 03/09/23 10/23/24 History Atorvastatin [Lipitor] 20 mg PO QAM 03/09/23 10/23/24 History hydroCHLOROthiazide 25 mg PO QAM 03/09/23 10/23/24 History Acetaminophen Tab [Tylenol Tab] 1,000 mg PO Q6HR PRN #30 tablet 03/15/23 10/23/24 Rx Ibuprofen [Motrin] 600 mg PO Q8HR PRN #30 tab 03/15/23 10/23/24 Rx Meloxicam [Mobic] 15 mg PO DAILY 10/21/24 10/23/24 History Allergies Allergy/AdvReac Type Severity Reaction Status Date / Time No Known Allergies Allergy Verified 10/23/24 10:52 Physical Examination Osteopathic Statement: *. No significant issues noted on an osteopathic structural exam other than those noted in the History and Physical/Consult.
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
[2024-10-23] MEDS ORDERED: HYDROmorphone (PF) 1 MG/ML ONE (12:39)
[2024-10-23] MEDS ORDERED: PHENYLEPHRINE-0.9% NACL SYG 1,000 MCG/10 ML SYRINGE ONE (12:39)
[2024-10-23] MEDS ORDERED: GLYCOPYRROLATE 0.2 MG/ML 2 ML VIAL ONE (12:39)
[2024-10-23] MEDS ORDERED: fentaNYL (PF) 50 MCG/ML 2 ML AMP ONE (12:39)
[2024-10-23] MEDS ORDERED: TRANEXAMIC 1,000 MG/100ML-NACL PREMIX BAG ONE (12:39)
[2024-10-23] MEDS ORDERED: SUCCINYLCHOLINE CHLORIDE 200 MG/10 ML VIAL IV ONE (12:39)
[2024-10-23] MEDS ORDERED: MIDAZOLAM 2 MG/2 ML VIAL ONE (12:39)
[2024-10-23] MEDS ORDERED: PROPOFOL 10 MG/ML 20 ML VIAL IV ONE (12:39)
[2024-10-23] MEDS ORDERED: ROCURONIUM 10 MG/ML (5 ML VIAL) IV ONE (12:39)
[2024-10-23] MEDS ORDERED: KETAMINE HCL IN 0.9 % NACL 50 MG/5 ML SYRINGE ONE (12:39)
[2024-10-23] MEDS ORDERED: KETOROLAC 30 MG/ML 1 ML VIAL ONE (12:39)
[2024-10-23] MEDS ORDERED: NEOSTIGMINE 1 MG/ML 10 ML VIAL ONE (12:39)
[2024-10-23] MEDS: ceFAZolin 3 GM in SODIUM CHLORIDE 0.9% 100 ML IVPB PRN (12:44)
[2024-10-23] MEDS: ROPIVACAINE/EPI/CLONIDINE/KET 50 ML SYRINGE MISCELLANE PRN (13:19)
[2024-10-23] MEDS: THROMBIN (BOVINE) 5,000 UNIT VIAL TOPICAL ONE (13:19)
[2024-10-23 14:54] VITALS: TEMP 96.9
--- NOTE | 2024-10-23 15:02 | XR ---
Fluoroscopy INDICATION: Pain FINDINGS: Fluoroscopy time: 22 seconds. Total dose area product (DAP) in uGy*m?, mGy*cm? (or similar): 14.877 Images obtained: 6. Images document placement of needle directed towards the lumbar spine IMPRESSION: 1. Documentation of fluoroscopy. [facility], , 10/23/2024 3:00 PM
--- NOTE | 2024-10-23 15:03 | FL ---
Fluoroscopy INDICATION: Pain FINDINGS: Fluoroscopy time: 22 seconds. Total dose area product (DAP) in uGy*m?, mGy*cm? (or similar): 14.877 Images obtained: 0. IMPRESSION: 1. Documentation of fluoroscopy. [facility], , 10/23/2024 3:01 PM
[2024-10-23 16:09] VITALS: RESP 20
[2024-10-23 17:18] VITALS: BP 115/73; PULSE 87
--- NOTE | 2024-10-23 19:01 | P.OP ---
Date of Procedure: 10/23/24 Preoperative Diagnosis: 1.L4-5 spondylosis with stenosis 2.Left lower extremity radiculopathy 3. Low back pain Postoperative Diagnosis: 1.L4-5 spondylosis with stenosis 2.Left lower extremity radiculopathy 3. Low back pain Procedure(s) Performed: 1. 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 Imaging reveals L4-5 spondylosis with moderate to severe central and foraminal stenosis, particularly pronounced on the left side, with ligamental overgrowth and facet hypertrophy causing lateral recess stenosis. The patient reports significant functional limitations, including difficulty with walking, tox-rn-fseef transitions, and stairs, occasionally requiring crutch assistance. Conservative management with NSAIDs and heat/ice therapy has been unsuccessful. Given the progressive neurological symptoms and imaging findings, surgical intervention via L4-5 laminoforaminotomy LEFT MIS has been recommended, pending medical clearance from PCP. Patient has been thoroughly counseled on surgical risks and benefits. Description of Procedure: L4-5 LEFT LAMINOFORAMINOTOMY The patient was seen and examined in the preoperative area. All preoperative protocols were followed. Informed consent was obtained, risks and benefits of the procedure were discussed at length. Risks including bleeding infection damage to the surrounding tissue and risk of reoperation were discussed with the patient. Risk of anesthesia up to and including was discussed with the patient. These are outlined in the risk review. They were willing to accept these risks and all the risks of surgery. The patient was given a weight-based dose of antibiotics in the form of 2 g Ancef. The patient was seen and evaluated by the anesthesia team who deemed them fit for surgery. The site was marked, the patient was willing to proceed with the procedure. The patient was transferred to the operative suite by the Department of anesthesia. They were then drifted off to sleep by the department anesthesia and GETA was performed. The patient tolerated this well. Once confirmation of lines and ventilation the patient was transferred to a prone Gabriel table very carefully. All bony prominences including wrists, elbows, axilla, chest, hips, and thighs, and feet were padded very well. Special attention was paid to the genitalia, and these were padded accordingly. SCDs were placed on bilateral lower extremities and were connected. Arms were well padded and placed on arm boards up and out in the 90/90 position. Once in position, again we confirmed good ventilation capabilities and that lines were running appropriately. The patients Lumbar spine was then exposed. 1010s were placed outlining the incision site. Standard alcohol was used to clean the incision site and allowed to dry. C-arm was used to needle localize the pedicles at L4-5 and bio-keyshawn the patient and confirm level for incision which was marked with a skin marker. Operative briefing was performed with all teams and everyone in agreement to proceed. The patient was then prepped and draped in a normal sterile fashion. Timeout was then performed, and all parties agreed with the procedure to be per formed. Skin incision was made over the previously marked area. Fluoroscopy was then used to target the lamina and facet joints on the LEFT hand side of L4-5 and initial dilator for tubular retractor system was used to identify this area. Once in a good position, sequential dilation was taken up to 26 mm and tube selected. A70 mm tube was then placed and secured to the table. This was confirmed to be in good position on AP and Lateral imaging. Limited myomectomy was then done to identify the lamina, interlaminar space, and facet joints. Tera-laminotomy, partial medial facetectomy and foraminotomy were performed at L4-5 using high speed iftikhar and Kerrison rongeur. The ligamentum flavum was removed with Kerrison and curette. Dura and roots protected. The disc space was identified along with the herniation. 11 blade was used to make small annulotomy and micro-pituitary used to remove loose disc fragments. Once fragments were removed, down biting curette was used to push any medial fragments down and towards the annulotomy and decompress centrally. The disc space was irrigated, and any loose fragments removed again. Bipolar was used for hemostasis and scarring of the annulotomy. The area was irrigated, and meticulous hemostasis performed. The bed was inspected, and all roots have ample room and are decompressed along with the dura. There were no injuries. Retractors were then removed. The wound was copiously irrigated with NSS. The deep fascia was closed with 0 PDS. Deep sub-q with 0 Vicryl and superficial with 2-0 Vicryl. Subcuticular was closed with 3-0 stratafix. The wound edges approximated well. The wound was then cleaned, and glue tape placed on the skin and allowed to dry. It was then Covered with an Opifoam dressing. The bed was inspected, and all roots have ample room and are decompressed along with the dura. There were no injuries. Retractors were then removed. The wound was copiously irrigated with NSS. The deep fascia was closed with 0 PDS. Deep sub-q with 0 Vicryl and superficial with 2-0 Vicryl. Skin was closed with skin zhou. The wound edges approximated well. The wound was then cleaned, and glue tape placed on the skin and allowed to dry. It was then Covered with an Opifoam dressing. The patient was then transferred off the table back to their hospital bed a- traumatically. They were extubated by the department of anesthesia. They were then transferred to PACU in stable condition having tolerated the procedure with no complications.
== END 2024-10-23 17:40 | disposition home or self-care (01) ==
LOC: OR 10:38
PROVIDERS: ATTEND Orthopaedic Surgery
DX: M47.26 Other spondylosis with radiculopathy, lumbar region (principal); M48.061 Spinal stenosis, lumbar region without neurogenic claudication; M51.14 Intervertebral disc disorders with radiculopathy, thoracic region; M50.122 Cervical disc disorder at C5-C6 level with radiculopathy; E66.01 Morbid (severe) obesity due to excess calories; I10 Essential (primary) hypertension; E78.2 Mixed hyperlipidemia; E79.0 Hyperuricemia without signs of inflammatory arthritis and tophaceous disease; M19.90 Unspecified osteoarthritis, unspecified site; R94.31 Abnormal electrocardiogram [ECG] [EKG]; F17.210 Nicotine dependence, cigarettes, uncomplicated; Z68.41 Body mass index [BMI] 40.0-44.9, adult; Z79.899 Other long term (current) drug therapy; Z79.82 Long term (current) use of aspirin; Z79.1 Long term (current) use of non-steroidal anti-inflammatories (NSAID); Z96.653 Presence of artificial knee joint, bilateral; Z98.890 Other specified postprocedural states
CPT/HCPCS: 72100; 63030; J2250; J0330; J1100; J2710; J0690; J2405; J3010; J1885; J1171; J2704; J2371; J1596

== ENCOUNTER 2024-10-25 22:03 | Observation (INO) | payer MEDICARE, OTHER ==
[2024-10-25] MEDS: HYDROmorphone 1 MG/ML 1 ML SYRINGE IM STA (22:57)
[2024-10-26] MEDS: HYDROmorphone 1 MG/ML 1 ML SYRINGE IVP STA (00:11)
--- NOTE | 2024-10-26 00:39 | ED ---
Back Pain HPI - General Chief Complaint: Back Pain/Injury Stated Complaint: Post-Op Complications Time Seen by Provider: 10/25/24 22:10 Source: patient Limitations: no limitations - History of Present Illness Initial Comments: 54-year-old male presenting with chief complaint of back pain with radiation to the legs. Patient had surgery on with Dr. Lou. He reports he has been having steadily increasing lower back pain and bilateral leg pain. He has been taking his postoperative pain medication at home including [place], cyclobenzaprine, gabapentin. He at times has some numbness and tingling. States that this feels the more intense version of his chronic pain prior to surgery. He is currently also on antibiotics. No fever, abdominal pain, vomiting. He has not looked at his incision. - Related Data Home Medications Medication Instructions Recorded Confirmed Aspirin [Adult Low Dose Aspirin EC] 81 mg PO DAILY 03/09/23 10/23/24 Atorvastatin [Lipitor] 20 mg PO QAM 03/09/23 10/23/24 hydroCHLOROthiazide 25 mg PO QAM 03/09/23 10/23/24 Meloxicam [Mobic] 15 mg PO DAILY 10/21/24 10/23/24 Previous Rx's Medication Instructions Recorded Acetaminophen Tab [Tylenol Tab] 1,000 mg PO Q6HR PRN #30 tablet 03/15/23 Ibuprofen [Motrin] 600 mg PO Q8HR PRN #30 tab 03/15/23 Cyclobenzaprine [Flexeril] 10 mg PO TID #21 tab 10/23/24 Gabapentin 300 mg PO TID #30 cap 10/23/24 HYDROcodone/APAP 7.5-325MG [[place]cy 1 tab PO Q6HR PRN #28 tab 10/23/24 7.5-325] Sennosides/Docusate Sodium [Senna 1 each PO DAILY #20 capsule 10/23/24 Plus 8.6-50 mg Softgel] cefaDROXiL [Duricef] 500 mg PO Q12HR 5 Days #10 cap 10/23/24 Allergies Allergy/AdvReac Type Severity Reaction Status Date / Time No Known Allergies Allergy Verified 10/25/24 22:07 Review of Systems ROS Statement: Those systems with pertinent positive or pertinent negative responses have been documented in the HPI. ROS Other: All systems not noted in ROS Statement are negative. Past Medical History Past Medical History: Hyperlipidemia, Hypertension, Osteoarthritis (OA) History of Any Multi-Drug Resistant Organisms: None Reported Past Surgical History: Hernia Repair, Joint Replacement, Orthopedic Surgery Additional Past Surgical History / Comment(s): RIGHT KNEE REPLACED @ [facility], [place]. LT TKA, COLONOSCOPY,EGD Past Anesthesia/Blood Transfusion Reactions: No Reported Reaction Past Psychological History: No Psychological Hx Reported Smoking Status: Current every day smoker Past Alcohol Use History: Occasional Past Drug Use History: None Reported - Past Family History Mother Family Medical History: No Reported History General Exam Limitations: no limitations General appearance: alert, in no apparent distress Head exam: Present: atraumatic, normocephalic, normal inspection Eye exam: Present: normal appearance, EOMI Neck exam: Present: normal inspection. Absent: meningismus Respiratory exam: Present: normal lung sounds bilaterally. Absent: respiratory distress, wheezes, rales, rhonchi, stridor Cardiovascular Exam: Present: regular rate, normal rhythm, normal heart sounds. Absent: systolic murmur, diastolic murmur, rubs, gallop, clicks Extremities exam: Present: normal inspection Back exam: Present: normal inspection Neurological exam: Present: alert, oriented X3 Psychiatric exam: Present: normal affect, normal mood Skin exam: Present: other (Incision appears to be healing well, no erythema or induration. No evidence of any bleeding or discharge.) Course Vital Signs 10/25/24 10/25/24 10/26/24 22:05 23:59 01:42 Temperature 97.7 F Pulse Rate 84 78 86 Respiratory 18 19 20 Rate Blood Pressure 145/82 120/80 135/75 O2 Sat by Pulse 96 98 96 Oximetry Medical Decision Making - Medical Decision Making Was pt. sent in by a medical professional or institution (, PA, OCCUPATIONAL HEALTH PHYSIOTHERAPIST, urgent care, hospital, or [facility]...) When possible be specific @ -No Did you speak to anyone other than the patient for history (EMS, parent, family, police, friend...)? What history was obtained from this source @ -No Did you review nursing and triage notes (agree or disagree)? Why? @ -I reviewed and agree with nursing and triage notes Were old charts reviewed (outside hosp., previous admission, EMS record, old EKG, old radiological studies, urgent care reports/EKG's, [facility] records)? Report findings @ -No old charts were reviewed Differential Diagnosis (chest pain, altered mental status, abdominal pain women, abdominal pain men, vaginal bleeding, weakness, fever, dyspnea, syncope, headache, dizziness, GI bleed, back pain, seizure, CVA, palpatations, mental health, musculoskeletal)? @ - [facility] Differential Back Pain: Strain, zoster, cauda equina syndrome, epidural abscess, vertebral osteomyelitis, discitis, fracture, subluxation, disc herniation, DJD, spinal stenosis, dissection, AAA, pancreatitis, peptic ulcer disease, pyelonephritis, kidney stone this is not meant to be an all-inclusive list. EKG interpreted by me (3pts min.). @ -As above X-rays interpreted by me (1pt min.). @ -KUB shows nonobstructive bowel gas pattern. Increased colonic stool predominant within the right colon which may reflect constipation CT interpreted by me (1pt min.). @ -CT shows status post left hemilaminectomy at L4-L5 with nonspecific fluid collection at the laminectomy site measuring 3.7 x 2.6 x 2.2 cm. This could represent a hematoma/seroma. Abscess is considered less likely but is not excluded. Pseudomeningocele is not excluded. Congenital spinal canal narrowing with increased epidural fat contributing to multilevel spinal canal narrowing. This appears severe at the L4-L5 level. Sclerotic lesion in the S2 vertebral body favored to represent a bone island U/S interpreted by me (1pt. min.). @ -None done What testing was considered but not performed or refused? (CT, X-rays, U/S, labs)? Why? @ -None What meds were considered but not given or refused? Why? @ -None Did you discuss the management of the patient with other professionals (professionals i.e. , PA, OCCUPATIONAL HEALTH PHYSIOTHERAPIST, lab, RT, psych nurse, social contact worker, irrigation district manager, teacher, commanding officer homicide squad, geriatric case manager)? Give summary @ -Spoke with [facility] Sum[facility] from [facility] who [facility] Was smoking cessation discussed for >3mins.? @ -No Was critical care preformed (if so, how long)? @ -No Were there social determinants of health that impacted care today? How? (Homelessness, low income, unemployed, alcoholism, drug addiction, transportation, low edu. Level, literacy, decrease access to med. care, detention, rehab)? @ -No Was there de-escalation of care discussed even if they declined (Discuss DNR or withdrawal of care, Hospice)? DNR status @ -No What co-morbidities impacted this encounter? (DM, HTN, Smoking, COPD, CAD, Cancer, CVA, ARF, Chemo, Hep., AIDS, mental health diagnosis, sleep apnea, morbid obesity)? @ -None Was patient admitted / discharged? Hospital course, mention meds given and route, prescriptions, significant lab abnormalities, going to OR and other pertinent info. @ -54-year-old male presented with chief complaint of back pain and bilateral leg pain worsening since his laminectomy on . No red flag symptoms. History and physical examination are conducted. Patient is treated with a total of 2 mg of Dilaudid and reports very little pain improvement. KUB x-ray shows evidence of constipation. Lumbar spine CT shows evidence of hematoma/seroma. Patient is still in a large amount of pain, he will be admitted for postoperative pain management. Patient is agreeable with this plan. I discussed this case my attending Dr. Quintana Undiagnosed new problem with uncertain prognosis? @ -No Drug Therapy requiring intensive monitoring for toxicity (Heparin, Nitro, Insulin, Cardizem)? @ -No Were any procedures done? @ -No Diagnosis/symptom? @ -Intractable postoperative pain Acute, or Chronic, or Acute on Chronic? @ -Acute Uncomplicated (without systemic symptoms) or Complicated (systemic symptoms)? @ -Complicated Side effects of treatment? @ -No Exacerbation, Progression, or Severe Exacerbation? @ -No Poses a threat to life or bodily function? How? (Chest pain, [place], [place], pneumonia, PE, COPD, DKA, ARF, appy, cholecystitis, CVA, Diverticulitis, Homicidal, Suicidal, threat to staff... and all critical care pts) @ -Potential Disposition Clinical Impression: Postoperative pain after spinal surgery Disposition: ADMITTED IP TO THIS HOSP Condition: Good Referrals: Clayton Tello MD [Primary Care Provider] - 1-2 days Time of Disposition: 02:56
--- NOTE | 2024-10-26 00:48 | XR ---
ADDENDUM - Added by Lukas Marsh M.D. on 10/26/2024 12:48 AM (-05:00) Increased colonic stool, predominate within the right colon, which may reflect constipation. EXAM: XR Abdomen, 2 Views CLINICAL HISTORY: ITS.REASON XR Reason: constipation TECHNIQUE: Frontal view of the abdomen/pelvis with upright view of the abdomen. COMPARISON: No relevant prior studies available. FINDINGS: Intraperitoneal space: No free air. Gastrointestinal tract: Nonobstructive bowel gas pattern. Bones/joints: Degenerative change in the lumbar spine. Soft tissues: Skin closure zhou projecting over the midline. IMPRESSION: Nonobstructive bowel gas pattern.
--- NOTE | 2024-10-26 01:46 | CT ---
EXAM: CT Lumbar Spine Without Intravenous Contrast CLINICAL HISTORY: ITS.REASON CT Reason: Postop pain TECHNIQUE: Axial computed tomography images of the lumbar spine without intravenous contrast. CTDI is 66.6 mGy and DLP is 2818.4 mGy-cm. This CT exam was performed using one or more of the following dose reduction techniques: automated exposure control, adjustment of the mA and/or kV according to patient size, and/or use of iterative reconstruction technique. COMPARISON: No relevant prior studies available. FINDINGS: Patient is status post left hemilaminectomy at L4-L5. There is a poorly defined nonspecific fluid collection at the laminectomy site measuring 3. 7 x 2.6 x 2.2 cm. There are skin closure zhou posteriorly. Lumbar vertebral body height and alignment are maintained. There is no acute fracture or traumatic subluxation. There is mild disc degeneration and moderate facet degeneration within the lumbar spine. There is mild interspinous arthropathy. There is congenital spinal canal narrowing with increased epidural lipomatosis is suggested within the lumbar spine, which may be contributing to spinal canal stenosis. L1-L2: No spinal canal or foraminal narrowing. L2-L3: Mild spinal canal narrowing. No foraminal narrowing. L3-L4: Mild-moderate spinal canal narrowing. Mild bilateral foraminal narrowing. L4-L5: Left hemilaminectomy at this level. Disc bulge, epidural lipomatosis resulting in moderate to severe spinal canal narrowing. Mild- moderate bilateral foraminal narrowing. L5-S1: Mild spinal canal narrowing. Mild bilateral foraminal narrowing. Sacroiliac joints are normally aligned. There is a 17 mm sclerotic lesion in the sacrum at S2 level. IMPRESSION: 1. Status post left hemilaminectomy at L4-L5 with nonspecific fluid collection at the laminectomy site measuring 3.7 x 2.6 x 2.2 cm. This could represent a hematoma-seroma. Abscess is considered less likely but is not excluded. Pseudomeningocele is not excluded. 2. Congenital spinal canal narrowing with increased epidural fat contributing to multilevel spinal canal narrowing. This appears severe at the L4-L5 level. 3. Sclerotic lesion in the S2 vertebral body, favored to represent a bone island.
[2024-10-26] MEDS ORDERED: NALOXONE 0.4 MG/ML 1 ML VIAL IV PRN (02:52)
[2024-10-26 02:54] LABS: Basophils # (A) 0.1 k/uL (0-0.2); Basophils % (A) 1 %; Eosinophils # (A) 0.4 k/uL (0-0.7); Eosinophils % (A) 2 %; HCT 41.3 % (39.0-53.0); HGB 13.4 gm/dL (13.0-17.5); Lymphocytes # (A) 2.6 k/uL (1.0-4.8); Lymphocytes % (A) 15 %; MCH 30.5 pg (25.0-35.0); MCHC 32.4 g/dL (31.0-37.0); Mean Platelet Volume 6.7; Monocytes # (A) 1.2 k/uL (0-1.0); Monocytes % (A) 7 %; Neutrophils # (A) 12.8 k/uL (1.3-7.7); Neutrophils % (A) 74 %; Platelet Count 307 k/uL (150-450); RBC 4.39 m/uL (4.30-5.90); RDW 12.2 % (11.5-15.5); WBC 17.3 k/uL (3.8-10.6)
[2024-10-26 03:23] LABS: ALT 19 U/L (4-49); AST 23 U/L (17-59); African American GFR (CKD) >90 (>60 ml/min/1.73 sqM); Albumin 3.8 g/dL (3.5-5.0); Alkaline Phosphatase 67 U/L (38-126); Anion Gap 5 mmol/L; Blood Urea Nitrogen 11 mg/dL (9-20); C Reactive Protein 3.5 mg/dL (<1.0); Calcium 8.9 mg/dL (8.4-10.2); Carbon Dioxide 30 mmol/L (22-30); Chloride 100 mmol/L (98-107); Glucose 93 mg/dL (74-99); Non-African American GFR(CKD) >90 (>60 ml/min/1.73 sqM); Potassium 3.8 mmol/L (3.5-5.1); Sodium 135 mmol/L (137-145); Total Bilirubin 0.8 mg/dL (0.2-1.3); Total Protein 6.3 g/dL (6.3-8.2)
--- NOTE | 2024-10-26 04:37 | P.CONS ---
History of Present Illness - Reason for Consult Consult date: 10/26/24 - History of Present Illness Patient is a 54-year-old male with PMH of hypertension, hyperlipidemia, who is status post lumbar laminoforaminotomy on 10/[address] Lou who presents to the emergency room with complaints of intractable lower back pain. Patient reports that he has been continuing to take his prescribed postoperative medications including [place], gabapentin, and Flexeril with minimal relief. He reports lower back pain with radiation down into his upper thighs bilaterally. Notes that his pain now is worse than his chronic pain prior to surgery. Denied experiencing chest discomfort, shortness of breath, fever, chills, cough, nausea, vomiting, abdominal pain, diarrhea. Lumbar spinal CT in the emergency room revealed a possible hematoma-seroma in the surgical site with no other acute abnormalities noted. Laboratory evaluation was remarkable for leukocytosis of 17.3, sodium 135, creatinine 0.51, with CRP 3.5. Review of systems: Pertinent positives and negatives as discussed in HPI, a complete review of systems was performed and all other systems are negative. Physical examination: Vital signs reviewed General: non toxic, no distress, appears at stated age, obese Derm: no unusual rashes/lesions, warm Head: atraumatic, normocephalic, symmetric Eyes: EOMI, no lid lag, anicteric sclera, pupils equal round reactive to light ENT: Nose and ears atraumatic Neck: No cervical lymphadenopathy, trachea midline, supple Mouth: no lip lesion, mucus membranes moist Cardiovascular: S1S2 reg, no murmur, positive dorsalis pedis pulse bilateral, no edema Lungs: CTA bilateral, no rhonchi, no rales, no accessory muscle use Abdominal: soft, nontender to palpation, no guarding Ext: muscle strength 5 out of 5 in all 4 extremities grossly, no gross muscle atrophy, no contractures, diffuse lower back tenderness on palpation Neuro: CN II-XI grossly intact, no gross focal neuro deficits Psych: Alert, oriented, appropriate affect Assessment: Chronic conditions: Hypertension, hyperlipidemia Low back pain postoperatively from lumbar laminoforaminotomy Imaging: Lumbar spinal CT in the emergency room revealed a possible hematoma-seroma in the surgical site with no other acute abnormalities noted. Data Review: Laboratory evaluation was remarkable for leukocytosis of 17.3, sodium 135, creatinine 0.51, with CRP 3.5. Plan: Resume home antihypertensive hydrochlorothiazide 25 mg p.o. daily Resume home statin Lipitor 20 mg p.o. nightly Defer management of postoperative pain to primary surgery service We appreciate this opportunity to be involved in this patient's care. We will follow the patient with you. For any further questions, please not hesitate to contact the [facility] inpatient team. Past Medical History Past Medical History: Hyperlipidemia, Hypertension, Osteoarthritis (OA) History of Any Multi-Drug Resistant Organisms: None Reported Past Surgical History: Hernia Repair, Joint Replacement, Orthopedic Surgery Additional Past Surgical History / Comment(s): RIGHT KNEE REPLACED @ [facility], [place]. LT TKA, COLONOSCOPY,EGD Past Anesthesia/Blood Transfusion Reactions: No Reported Reaction Past Psychological History: No Psychological Hx Reported Smoking Status: Current every day smoker Past Alcohol Use History: Occasional Past Drug Use History: None Reported - Past Family History Mother Family Medical History: No Reported History Medications and Allergies Home Medications Medication Instructions Recorded Confirmed Type Aspirin [Adult Low Dose Aspirin EC] 81 mg PO DAILY 03/09/23 10/23/24 History Atorvastatin [Lipitor] 20 mg PO QAM 03/09/23 10/23/24 History hydroCHLOROthiazide 25 mg PO QAM 03/09/23 10/23/24 History Acetaminophen Tab [Tylenol Tab] 1,000 mg PO Q6HR PRN #30 tablet 03/15/23 10/23/24 Rx Ibuprofen [Motrin] 600 mg PO Q8HR PRN #30 tab 03/15/23 10/23/24 Rx Meloxicam [Mobic] 15 mg PO DAILY 10/21/24 10/23/24 History Cyclobenzaprine [Flexeril] 10 mg PO TID #21 tab 10/23/24 Rx Gabapentin 300 mg PO TID #30 cap 10/23/24 Rx HYDROcodone/APAP 7.5-325MG [[place] 1 tab PO Q6HR PRN #28 tab 10/23/24 Rx 7.5-325] Sennosides/Docusate Sodium [Senna 1 each PO DAILY #20 capsule 10/23/24 Rx Plus 8.6-50 mg Softgel] cefaDROXiL [Duricef] 500 mg PO Q12HR 5 Days #10 cap 10/23/24 Rx Allergies Allergy/AdvReac Type Severity Reaction Status Date / Time No Known Allergies Allergy Verified 10/25/24 22:07 Physical Exam Vitals: Vital Signs Temp Pulse Resp BP Pulse Ox 10/26/24 02:51 97.1 F L 89 18 128/70 97 10/26/24 01:42 86 20 135/75 96 10/25/24 23:59 78 19 120/80 98 10/25/24 22:05 97.7 F 84 18 145/82 96 Intake and Output 10/25/24 10/25/24 10/26/24 14:59 22:59 06:59 Other: Weight 142.882 kg Results CBC & Chem 7: 10/26/24 02:32 10/26/24 02:32 Labs: Abnormal Lab Results - Last 24 Hours (Table) 10/26/24 10/26/24 Range/Units 02:32 02:32 WBC 17.3 H (3.8-10.6) k/uL Neutrophils # 12.8 H (1.3-7.7) k/uL Monocytes # 1.2 H (0-1.0) k/uL Sodium 135 L (137-145) mmol/L Creatinine 0.51 L (0.66-1.25) mg/dL C-Reactive Protein 3.5 H (<1.0) mg/dL
[2024-10-26] MEDS: KETOROLAC 15 MG/ML 1 ML VIAL IVP PRN (05:13)
[2024-10-26] MEDS: HYDROmorphone 1 MG/ML 1 ML SYRINGE IVP PRN (05:14)
[2024-10-26] MEDS: SENNOSIDES-DOCUSATE SODIUM 1 EACH TAB PO SCH (09:05)
[2024-10-26] MEDS: hydroCHLOROthiazide 25 MG TAB PO SCH (09:05)
[2024-10-26] MEDS: ATORVASTATIN 20 MG TAB PO SCH (09:05)
[2024-10-26] MEDS ORDERED: ACETAMINOPHEN TAB 500 MG TAB PO PRN (10:17)
[2024-10-26] MEDS ORDERED: HYDROcodone/APAP 10-325MG 1 EACH TAB PO PRN (10:18)
--- NOTE | 2024-10-26 10:27 | P.CNOR ---
History of Present Illness - [facility] Consult date: 10/26/24 Consult reason: other (Postoperative pain) History of present illness: Patient is a 54-year-old male who presented to [facility] on 10/25/2024 with worsening low back pain and radiation into the bilateral lower extremities. Patient is known to our orthopedic service, he is postoperative day #3 status p ost L4-L5 laminoforaminotomy with Dr. Hernandez. Patient states initially and Sunday he was doing rather well. He was ambulating with the assistance of walker and doing the home exercise. He states Sunday when he woke up he started have worsening pain in the low back that radiated into the bilateral buttock region and affected the lower extremities. He states by Sunday night the pain had worsened significantly and the medications were not helping with the pain. He denies any loss of bowel or bladder function. He denies any numbness or tingling to the perineal or genital region. He denies any trauma. At bedside, patient appears rather comfortable, he is able to move around decent in bed. He has been receiving Dilaudid since being in the ER. I was contacted by the emergency room staff last night regarding this patient, he was admitted under our orthopedic care with internal medicine on consult. Patient has been utilizing the gabapentin, Flexeril and Edison 7.5 mg / 325 mg at home. Review of Systems Constitutional: Reports as per [facility] Past Medical History Past Medical History: Hyperlipidemia, Hypertension, Osteoarthritis (OA) History of Any Multi-Drug Resistant Organisms: None Reported Past Surgical History: Hernia Repair, Joint Replacement, Orthopedic Surgery Additional Past Surgical History / Comment(s): RIGHT KNEE REPLACED @ [facility], [facility]. LT TKA, COLONOSCOPY,EGD Past Anesthesia/Blood Transfusion Reactions: No Reported Reaction Past Psychological History: No Psychological Hx Reported Smoking Status: Current every day smoker Past Alcohol Use History: Occasional Past Drug Use History: None Reported - Past Family History Mother Family Medical History: No Reported History Medications and Allergies Home Medications Medication Instructions Recorded Confirmed Type Aspirin [Adult Low Dose Aspirin EC] 81 mg PO DAILY 03/09/23 10/23/24 History Atorvastatin [Lipitor] 20 mg PO QAM 03/09/23 10/23/24 History hydroCHLOROthiazide 25 mg PO QAM 03/09/23 10/23/24 History Acetaminophen Tab [Tylenol Tab] 1,000 mg PO Q6HR PRN #30 tablet 03/15/23 10/23/24 Rx Ibuprofen [Motrin] 600 mg PO Q8HR PRN #30 tab 03/15/23 10/23/24 Rx Meloxicam [Mobic] 15 mg PO DAILY 10/21/24 10/23/24 History Cyclobenzaprine [Flexeril] 10 mg PO TID #21 tab 10/23/24 Rx Gabapentin 300 mg PO TID #30 cap 10/23/24 Rx HYDROcodone/APAP 7.5-325MG [Edison 1 tab PO Q6HR PRN #28 tab 10/23/24 Rx 7.5-325] Sennosides/Docusate Sodium [Senna 1 each PO DAILY #20 capsule 10/23/24 Rx Plus 8.6-50 mg Softgel] cefaDROXiL [Duricef] 500 mg PO Q12HR 5 Days #10 cap 10/23/24 Rx Allergies Allergy/AdvReac Type Severity Reaction Status Date / Time No Known Allergies Allergy Verified 10/25/24 22:07 Physical Examination Gen: AOx3, NAD VSS stable at this time Integument: Incision is clean, dry and intact, zhou are in good position condition. 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 4/5 strength to the bilateral lower extremities with hip flexion, knee extension, knee flexion, plantarflexion, dorsiflexion, EHL, FHL Reflexes: 2/4 in all UE and LE Negative Isa's bilaterally Negative clonus bilaterally Special Test: Straight leg raise on the left side does reproduce some radicular pain Results - Labs Labs: Abnormal Lab Results - Last 24 Hours (Table) 10/26/24 10/26/24 Range/Units 02:32 02:32 WBC 17.3 H (3.8-10.6) k/uL Neutrophils # 12.8 H (1.3-7.7) k/uL Monocytes # 1.2 H (0-1.0) k/uL Sodium 135 L (137-145) mmol/L Creatinine 0.51 L (0.66-1.25) mg/dL C-Reactive Protein 3.5 H (<1.0) mg/dL H & H 10/26/24 Range/Units 02:32 Hgb 13.4 (13.0-17.5) gm/dL Hct 41.3 (39.0-53.0) % Result Diagrams: 10/26/24 02:32 10/26/24 02:32 - Diagnostic results CT Scan - lumbar: report reviewed, image reviewed Assessment and Plan Assessment: Postoperative day #3 status post L4-L5 laminoforaminotomy Postoperative pain Other medical comorbidities Plan: Imaging: CT scan of the lumbar spine without contrast was reviewed, with images and reports. There is a nonspecific fluid collection surrounding the operative site, no other osseous abnormalities appreciated Plan: I was able to discuss the case, this to include both physical exam findings and imaging studies and my attending Dr. Lou. No emergent orthopedic surgical intervention recommended at this time. I did order 6 mg of IV Decadron to be given now followed by 4 mg every 4 hours to help with overall discomfort. I also adjusted oral pain medication to Edison 10 mg / 325 mg. Patient will restart on the gabapentin 300 mg 3 times a day, Flexeril was also ordered as needed. GI DVT prophylaxis, stool softeners have been resumed, aspirin 81 mg daily for DVT prophylaxis. Patient also has compression stockings at this time Weight-bear as tolerated with walker No bending, lifting or twisting Medical recommendations appreciated Discharge planning: Advised patient will keep him in hospital for observation, pending pain control possible discharge to home on 10/27/2024 pending symptoms. Time with Patient: Less than 30
[2024-10-26] MEDS: DEXAMETHASONE SOD PHOSPHATE 10 MG/ML 1 ML VIAL IVP ONE (11:05)
[2024-10-26] MEDS: DEXAMETHASONE SOD PHOSPHATE 4 MG/ML 1 ML VIAL IVP SCH (13:22)
[2024-10-26] MEDS: CYCLOBENZAPRINE 10 MG TAB PO SCH (15:24)
[2024-10-26] MEDS: GABAPENTIN 300 MG CAP PO SCH (15:24)
[2024-10-27 07:56] VITALS: BP 135/81; PULSE 91; RESP 16; TEMP 97.6
[2024-10-27 08:18] LABS: Basophils # (A) 0.03 X 10*3/uL (0.00-0.10); Basophils % (A) 0.2 %; Eosinophils # (A) 0 X 10*3/uL (0.04-0.35); Eosinophils % (A) 0 %; HCT 41.4 % (39.6-50.0); HGB 14.4 g/dL (13.0-17.0); Lymphocytes # (A) 0.92 X 10*3/uL (0.90-5.00); Lymphocytes % (A) 7.2 %; MCH 31.5 pg (27.0-32.0); MCHC 34.8 g/dL (32.0-37.0); MCV 90.6 FL (80.0-97.0); Mean Platelet Volume 9.2 FL (9.5-12.2); Monocytes # (A) 0.85 X 10*3/uL (0.20-1.00); Monocytes % (A) 6.7 %; NRBC Per 100 WBC 0 X 10*3/uL (0.00-0.01); Neutrophils # (A) 10.89 X 10*3/uL (1.80-7.70); Neutrophils % (A) 85.4 %; Platelet Count 340 X 10*3/uL (140-440); RBC 4.57 X 10*6/uL (4.40-5.60); RDW 11.9 % (11.5-14.5); WBC 12.75 X 10*3/uL (4.50-10.00)
[2024-10-27 08:30] LABS: BUN/Creat Ratio 19.83 Ratio (12.00-20.00); Blood Urea Nitrogen 11.9 mg/dL (9.0-27.0); Calcium 8.9 mg/dL (8.7-10.3); Carbon Dioxide 25.7 mmol/L (21.6-31.8); Chloride 100 mmol/L (96-109); Glucose 250 mg/dL (70-110); Potassium 4.3 mmol/L (3.5-5.5); Sodium 137 mmol/L (135-145)
[2024-10-27] MEDS ORDERED: NON FORMULARY DRUG (Sennosides/Docusate Sodium [Senna Plus 8.6-50 Mg Softgel] 1 EACH Capsu PO SCH (09:00)
[2024-10-27] MEDS: ASPIRIN 81 MG PO SCH (09:02)
--- NOTE | 2024-10-27 10:23 | P.PN ---
Subjective Progress Note Date: 10/27/24 Principal diagnosis: Status post L4-L5 laminoforaminotomy Patient is evaluated at bedside today, he is resting comfortably in his hospital bed. Patient is feeling a lot better today with his overall discomfort. He feels that the radiating pain in the legs is essentially gone. He has been urinating with no issues, he did have a bowel movement also last night. He denies headaches, lightheadedness, chest pain or shortness of breath Objective - Vital Signs Vital signs: Vital Signs Temp 97.6 F 10/27/24 07:00 Pulse 91 10/27/24 07:00 Resp 16 10/27/24 07:00 BP 135/81 10/27/24 07:00 Pulse Ox 97 10/27/24 07:00 FiO2 Intake & Output 10/26/24 10/27/24 10/27/24 18:59 06:59 18:59 Intake Total 444 118 Balance 444 118 Weight 142.882 kg Intake: Oral 444 118 Other: Voiding Method Toilet # Voids 5 # Bowel Movements 3 - Exam Gen: AOx3, NAD VSS stable at this time Integument: Incision is clean, dry and intact, zhou are in good position condition. There is no drainage, erythema or soft tissue swelling in the area Palpation: Mild tenderness with palpation to the left-sided paraspinal lumbar region ROM: Full range of motion of major muscle groups of the bilateral upper and lower extremities, no focal deficits appreciated Sensory Exam: Senory exam to light touch is intact C5-T1 Senosry exam to light touch is intact L2-S1 Motor: 5/5 strength appreciated bilateral upper extremities with shoulder elevation, shoulder abduction, elbow extension, elbow flexion, wrist extension, wrist flex ion, office runner 4/5 strength to the bilateral lower extremities with hip flexion, knee extension, knee flexion, plantarflexion, dorsiflexion, EHL, FHL Reflexes: 2/4 in all UE and LE Negative Isa's bilaterally Negative clonus bilaterally Special Test: Straight leg raise on the left side does reproduce some radicular pain - Labs CBC & Chem 7: 10/27/24 04:48 10/27/24 04:48 Labs: Abnormal Lab Results - Last 24 Hours (Table) 10/27/24 10/27/24 Range/Units 04:48 04:48 WBC 12.75 H (4.50-10.00) X 10*3/uL MPV 9.2 L (9.5-12.2) FL Immature Gran # 0.06 H (0.00-0.04) X 10*3/uL Neutrophils # 10.89 H (1.80-7.70) X 10*3/uL Eosinophils # 0 L (0.04-0.35) X 10*3/uL Glucose 250 H (70-110) mg/dL Assessment and Plan Assessment: Postoperative day #4 status post L4-L5 laminoforaminotomy Postoperative pain Other medical comorbidities Plan: Plan: Plan for discharge on a Medrol Dosepak, will also increase Rueter to 10 mg / 325 mg Wound care was discussed Weight-bear as tolerated with walker No bending, lifting or twisting Medical recommendations appreciated Discharge planning: Stable for discharge home today, patient will receive 1 additional dose of Decadron later this afternoon prior to discharge. Time with Patient: Less than 30
--- NOTE | 2024-10-27 10:27 | P.DS ---
Providers Date of admission: 10/26/24 06:50 Expected date of discharge: 10/27/24 Attending physician: Miguel A Lou DO Consults: 10/26/24 02:52 Consult Physician Urgent Consulting Provider: Norman Rueda Consult Reason/Comments: Medical management Do you want consulting provider notified?: Already Contacted Primary care physician: Clayton Tello Hospital Course: Date of admission: 10/26/2024 Date of discharge: 10/27/2024 Admission diagnosis: Postoperative pain, history of recent L4-L5 laminoforaminotomy Discharge diagnosis: None Attending physician: Dr. Lou Surgical procedures: None Brief history: Patient is a 54-year-old male with a history of a recent lumbar surgery with Dr. Lou. Patient was postoperative day #2 into 3 when he noticed worsening lower back pain with radiation into his legs, this prompted him to return to the hospital. CT scan of the lumbar spine was done at that time, no acute osseous abnormalities were noted. Oral pain medication was adjusted during the hospital stay, he was also started on IV steroids which seemed to improve his symptoms significantly. Hospital course: During hospital stay patient was given IV Decadron and also increase of his oral pain medication. We also resumed Flexeril and gabapentin. Patient was able to ambulate with minimal assistance, he also had a bowel movement during his hospital stay. No orthopedic surgical intervention was done. Discharge condition/disposition: Patient will be discharged [home] in stable condition. Discharge medications: Instructions are given on resumption of patient's normal daily medications per primary care recommendation, in addition patient will be prescribed [place] 10 mg / 325 mg, Medrol Dosepak. Spine Discharge and Recovery Instructions Medications: See medication list All medication refills should be obtained through your primary care doctor or your clinic spine surgeon. Please discuss prescription refills at your follow up appointment. Do not call the hospital for medication refills. Dressing: Leave your dressing in place for a total of 5 days post operatively. Then you may remove your dressing and leave open to air. Keep the area clean and if not able to keep area clean, then cover with sterile gauze and tape. Showering: You may shower 3 days after your procedure allowing soap and water to run over incision. Do not scrub. Do not soak. Blot dry. Follow up: Please confirm a follow up appointment with your surgeon 3 weeks post operatively. Please make an appointment to follow up with your PCP in 1-2 weeks after surgery for evaluation '3 phase, 3-week plan' POST OP WEEKS 1-3 1. Lifting/carrying/pushing/pulling limited to less than 5 pounds. 2. Do not sit for longer than 15 minutes at one time. Get up and walk around. Prolonged sitting is NOT advised. If you lay down, see if you can tolerate laying down on you front (belly side) 3. Walk for periods of 15 minutes = 1 mile but no longer; do it multiple times times each day. 4. Ice your low back after activity. POST OP WEEKS 3-6 1. Lifting limited to less than 20 pounds. 2. Do not sit for longer than 30 minutes at a time. Frequently change positions. Use a sit-to stand workstation or take frequent breaks from sitting if you have returned to work. 3. Walk for 30 minutes each day. If possible, do these three or more times a day POST OP WEEKS 6+ At your 6-week appointment we will give you a physical therapy referral to focus on a core stabilization and strengthening program. You should also work on leg & buttock strengthening, hamstring & quadriceps stretching, and continue a low impact aerobic activity program such as swimming, walking, or riding a stationary bicycle. During the initial 6 weeks after your surgery, you are at the highest risk of re-injuring your spine. You should generally avoid BLT's (bending, lifting and twisting combination motions) and follow the above guidelines to reduce the chance of reinjury. You can anticipate post op appointments in our office at approximately 3 weeks and 6 weeks after your surgery. INCISION CARE: If your incision is not draining you do NOT need to cover it with a dressing. Keep your incision clean, dry and intact. In most cases, we apply skin glue, zhou or sutures to the incision at the time of surgery. This will be like a crust or have the appearance of a scab and will fall off in time on its own. The stitches or zhou need to be removed at 3 weeks post op appointment. You may begin to shower 3 days after surgery (this allows the glue to roberson well). However, please avoid scrubbing the incision site or peeling off any of the skin glue. This will ensure optimal healing of your incision. Also, during this time avoid soaking the incision area in water - this includes swimming pools, hot tubs or baths. No ointments, lotions or oils on the incision until your surgeon allows. Leave zhou, sutures or glue in place. Neurological dysfunction that comes on suddenly can also be a sign of a stroke. Below some common symptoms of a stroke are listed: B - balance difficulty such as sudden onset walking or leaning to one side - NEW E - eye problem such as sudden double vision or trouble seeing on one side - NEW F - Facial weakness or numbness on one side - NEW A - Arm or leg weakness or numbness on one side - NEW S - Slurred speech or difficulty with word finding - NEW T - Time is BRAIN! Call 911 as soon as you recognize these symptoms Diet: Consume a regular diet rich in vegetables and lean protein such as chicken or fish. You should consume in a ratio of approximately 20% fats|40% carbohydrates|40%protein. Vegetables, sweet potatoes, brown rice or quinoa are examples of good carbohydrates. Chips, white bread, cookies and sweets/sugar are examples of bad carbohydrates. Limit your bad carbs, go wild with good carbs. 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 (1) Get Active. Physical activity can help people lose weight, control high blood pressure and cholesterol, feel emotionally better, and sleep better. (2) Control Cholesterol. Avoid a diet high in saturated fat, trans fat, & cholesterol. Limit whole milk & cream, ice cream, butter, egg yolks, processed meats (like sausage and hot dogs), and fatty meats. Choose healthy foods that are low in saturated fat, trans fat and cholesterol which include: Fruits and vegetables, fiber rich grain products (like whole grain pasta and brown rice), lean meat such as chicken, fish, nuts, seeds, and legumes. (3) Eat Better. Eat small portions. Shop at the grocery with a list and do not stray from it. Tips for a healthy diet include: Limit sodium intake to less than 1500mg daily, avoid prepackaged, processed, and fast foods, choose a diet rich in fruits, vegetables, and whole grain, high fiber foods, and limit saturated & cholesterol in your diet. (4) Manage Blood Pressure. If you have high blood pressure, you should have a cuff at home so that you can check your blood pressure regularly. Be sure you have a good cuff. An arm one is generally better than a wrist one. Bring the cuff to a doctor's appointment to validate that the measurements that your cuff are taking are accurate. Take your blood pressure twice daily when you are sitting down and relaxing. Record the numbers in a log and bring this log with you to your doctors' appointments. (5) Lose Weight if your BMI is above 25. A healthy BMI is between 19-25. To calculate Your BMI, you may use a Standard BMI Calculator on the NIH BMI website: <www.nhlbi.nih.gov/guidelines/obesity/BMI/bmicalc.htm>. Weigh oneself daily. If you are overweight, set a goal to lose weight. A pound a week loss if needed is a good target. (6) Reduce Blood Sugar. Limit foods and liquids with "added sugars." (Added sugars include sucrose, fructose, glucose, maltose, dextrose, high fructose corn syrup, corn syrup, concentrated fruit juice and honey). (7) Stop Smoking. If you smoke, quitting smoking is one of the best things that you can do for your health. Smoking increases your risk of heart attack, stroke, and peripheral vascular disease, which is a build-up of plaque in your arteries. Please discard all the cigarettes and lighters in your house. Have a plan for what you will do when you have the urge to smoke. Direct and second- hand smoke shortens your life as well as the lives of your family, friends and others around you. For your health and the health of those around you, please consider quitting! Proper Bending Body Mechanics: Maintain a wide stance with one foot slightly in front of the other. Keep your back straight. Bend utilizing the strength in your hips and knees. Do not bend at the waist. Maintain the lifted object at your waist-level close to your body. Avoid lifting weight that causes immediately pain or pain anywhere in the body afterwards. Smoking/Nicotine If there was ever one thing that you could do to increase your overall health, decrease your risk of cardiovascular problems by about 39% the second you make the choice, it is to STOP SMOKING. Your body's most instant gratification is the second you stop smoking. We have all heard the studies, read the articles but it is true, smoking is extremely bad for your overall health, and moreover it is detrimental to your bone health. Nicotine, IN ANY FORM, kills bone cells, prevents your body from healing fractures, and significantly prolongs healing after surgery. In spine surgery specifically, it increases your risk of not healing your bones to create a fusion and increases your risk of having a revision surgery due to this up to 60%. I know it is hard. I know it feels impossible. But there are ways. Take control of your life. We are here to help you through it. And when you are ready, ask us and we can direct you to help if you desire. Use the START Plan to Quit Smoking (please visit the Helpguide.org website listed below for more information): S = Set a quit date. Choose a date within the next 2 weeks, so you have enough time to prepare without losing your motivation to quit. If you mainly smoke at work, quit on the weekend, so you have a few days to adjust to the change. T = Tell family, friends, and co-workers that you plan to quit. Let your friends and family in on your plan to quit smoking and tell them you need their support and encouragement to stop. Look for a quit juancarlos who wants to stop smoking as well. You can help each other get through the rough times. A = Anticipate and plan for the challenges you'll face while quitting. Most people who begin smoking again do so within the first 3 months. You can help yourself make it through by preparing ahead for common challenges, such as nicotine withdrawal and cigarette cravings. R = Remove cigarettes and other tobacco products from your home, car, and work. Throw away all your cigarettes (no emergency pack!), lighters, ashtrays, and matches. Wash your clothes and freshen up anything that smells like smoke. Shampoo your car, clean your drapes and carpet, and steam your furniture. T = Talk to your doctor about getting help to quit. Your doctor can prescribe medication to help with withdrawal and suggest other alternatives. If you can't see a doctor, you can get many products over the counter at your local pharmacy or grocery store, including the nicotine patch, nicotine lozenges, and nicotine gum. Resources for Quitting Smoking: <https://www.[place].gov/documents/[facility]/Quit_Tobacco_Resources_for_patients_313 480_7.pdf> Supplementation: Take recommended dosages of Vitamin D and Calcium to help fortify your bones and help them to heal. See your health maintenance packet for dosages and recommended levels. DVT/VTE prophylaxis: You will be given compression stockings from the hospital. Wear these daily for the first two weeks after surgery. You may take them off at night. You may be prescribed a medication to help thin your blood. Take this as directed. If you are not prescribed this medication, early and frequent ambulation has been shown to be the best prophylaxis to deep vein thrombosis and sequelae related to this event. Patient Condition at Discharge: Good Plan - Discharge Summary New Discharge Prescriptions: New methylPREDNISolone Dose Pack [Medrol Dose Pack] 4 mg PO DIRECTED #1 packet HYDROcodone/APAP 10-325MG [[place] 10-325] 1 tab PO Q6HR PRN 7 Days #28 tab PRN Reason: Pain No Action hydroCHLOROthiazide 25 mg PO DAILY Aspirin [Adult Low Dose Aspirin EC] 81 mg PO DAILY Acetaminophen Tab [Tylenol Tab] 1,000 mg PO Q6HR PRN #30 tablet PRN Reason: Pain cefaDROXiL [Duricef] 500 mg PO Q12HR 5 Days #10 cap HYDROcodone/APAP 7.5-325MG [[place] 7.5-325] 1 tab PO Q6HR PRN #28 tab PRN Reason: Pain Ibuprofen [Motrin Ib] 600 mg PO Q8H PRN PRN Reason: Pain Atorvastatin [Lipitor] 20 mg PO DAILY Meloxicam [Mobic] 15 mg PO DAILY Cyclobenzaprine [Flexeril] 10 mg PO TID #21 tab Gabapentin 300 mg PO TID #30 cap Sennosides/Docusate Sodium [Senna Plus 8.6-50 mg Softgel] 1 tab PO DAILY Discharge Medication List Aspirin [Adult Low Dose Aspirin EC] 81 mg PO DAILY 03/09/23 [History] Atorvastatin [Lipitor] 20 mg PO DAILY 03/09/23 [History] hydroCHLOROthiazide 25 mg PO DAILY 03/09/23 [History] Acetaminophen Tab [Tylenol Tab] 1,000 mg PO Q6HR PRN #30 tablet 03/15/23 [Rx] Meloxicam [Mobic] 15 mg PO DAILY 10/21/24 [History] Cyclobenzaprine [Flexeril] 10 mg PO TID #21 tab 10/23/24 [Rx] Gabapentin 300 mg PO TID #30 cap 10/23/24 [Rx] HYDROcodone/APAP 7.5-325MG [[place] 7.5-325] 1 tab PO Q6HR PRN #28 tab 10/23/24 [Rx] cefaDROXiL [Duricef] 500 mg PO Q12HR 5 Days #10 cap 10/23/24 [Rx] Ibuprofen [Motrin Ib] 600 mg PO Q8H PRN 10/26/24 [History] Sennosides/Docusate Sodium [Senna Plus 8.6-50 mg Softgel] 1 tab PO DAILY 10/26/24 [History] HYDROcodone/APAP 10-325MG [[place] 10-325] 1 tab PO Q6HR PRN 7 Days #28 tab 10/27/24 [Rx] methylPREDNISolone Dose Pack [Medrol Dose Pack] 4 mg PO DIRECTED #1 packet 10/27/24 [Rx] Follow up Appointment(s)/Referral(s): Clayton Tello MD [Primary Care Provider] - 1-2 days Miguel A Lou DO [Doctor of Osteopathic Medicine] - 11/06/24 10:30 am (Patient to keep his original post-op appt that is already scheduled.) Patient Instructions/Handouts: Pain Management After Surgery (DC) Activity/Diet/Wound Care/Special Instructions: Spine Discharge and Recovery Instructions All medication refills should be obtained through your primary care doctor or your clinic spine surgeon. Please discuss prescription refills at your follow up appointment. Do not call the hospital for medication refills. Dressing: Leave your dressing in place for a total of 5 days post operatively. Then you may remove your dressing and leave open to air. Keep the area clean and if not able to keep area clean, then cover with sterile gauze and tape. Showering: You may shower 3 days after your procedure allowing soap and water to run over incision. Do not scrub. Do not soak. Blot dry. Follow up: Please confirm a follow up appointment with your surgeon 3 weeks post operatively. Please make an appointment to follow up with your PCP in 1-2 weeks after surgery for evaluation '3 phase, 3-week plan' POST OP WEEKS 1-3 1. Lifting/carrying/pushing/pulling limited to less than 5 pounds. 2. Do not sit for longer than 15 minutes at one time. Get up and walk around. Prolonged sitting is NOT advised. If you lay down, see if you can tolerate laying down on you front (belly side) 3. Walk for periods of 15 minutes = 1 mile but no longer; do it multiple times times each day. 4. Ice your low back after activity. POST OP WEEKS 3-6 1. Lifting limited to less than 20 pounds. 2. Do not sit for longer than 30 minutes at a time. Frequently change positions. Use a sit-to stand workstation or take frequent breaks from sitting if you have returned to work. 3. Walk for 30 minutes each day. If possible, do these three or more times a day POST OP WEEKS 6+ At your 6-week appointment we will give you a physical therapy referral to focus on a core stabilization and strengthening program. You should also work on leg & buttock strengthening, hamstring & quadriceps stretching, and continue a low impact aerobic activity program such as swimming, walking, or riding a stationary bicycle. During the initial 6 weeks after your surgery, you are at the highest risk of re-injuring your spine. You should generally avoid BLT's (bending, lifting and twisting combination motions) and follow the above guidelines to reduce the chance of reinjury. You can anticipate post op appointments in our office at approximately 3 weeks and 6 weeks after your surgery. INCISION CARE: If your incision is not draining you do NOT need to cover it with a dressing. Keep your incision clean, dry and intact. In most cases, we apply skin glue, zhou or sutures to the incision at the time of surgery. This will be like a crust or have the appearance of a scab and will fall off in time on its own. The stitches or zhou need to be removed at 3 weeks post op appointment. You may begin to shower 3 days after surgery (this allows the glue to roberson well). However, please avoid scrubbing the incision site or peeling off any of the skin glue. This will ensure optimal healing of your incision. Also, during this time avoid soaking the incision area in water - this includes swimming pools, hot tubs or baths. No ointments, lotions or oils on the incision until your surgeon allows. Leave zhou, sutures or glue in place. Neurological dysfunction that comes on suddenly can also be a sign of a stroke. Below some common symptoms of a stroke are listed: B - balance difficulty such as sudden onset walking or leaning to one side - NEW E - eye problem such as sudden double vision or trouble seeing on one side - NEW F - Facial weakness or numbness on one side - NEW A - Arm or leg weakness or numbness on one side - NEW S - Slurred speech or difficulty with word finding - NEW T - Time is BRAIN! Call 911 as soon as you recognize these symptoms Diet: Consume a regular diet rich in vegetables and lean protein such as chicken or fish. You should consume in a ratio of approximately 20% fats|40% carbohydrates|40%protein. Vegetables, sweet potatoes, brown rice or quinoa are examples of good carbohydrates. Chips, white bread, cookies and sweets/sugar are examples of bad carbohydrates. Limit your bad carbs, go wild with good carbs. 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 (1) Get Active. Physical activity can help people lose weight, control high blood pressure and cholesterol, feel emotionally better, and sleep better. (2) Control Cholesterol. Avoid a diet high in saturated fat, trans fat, & cholesterol. Limit whole milk & cream, ice cream, butter, egg yolks, processed meats (like sausage and hot dogs), and fatty meats. Choose healthy foods that are low in saturated fat, trans fat and cholesterol which include: Fruits and vegetables, fiber rich grain products (like whole grain pasta and brown rice), lean meat such as chicken, fish, nuts, seeds, and legumes. (3) Eat Better. Eat small portions. Shop at the grocery with a list and do not stray from it. Tips for a healthy diet include: Limit sodium intake to less than 1500mg daily, avoid prepackaged, processed, and fast foods, choose a diet rich in fruits, vegetables, and whole grain, high fiber foods, and limit saturated & cholesterol in your diet. (4) Manage Blood Pressure. If you have high blood pressure, you should have a cuff at home so that you can check your blood pressure regularly. Be sure you have a good cuff. An arm one is generally better than a wrist one. Bring the cuff to a doctor's appointment to validate that the measurements that your cuff are taking are accurate. Take your blood pressure twice daily when you are sitting down and relaxing. Record the numbers in a log and bring this log with you to your doctors' appointments. (5) Lose Weight if your BMI is above 25. A healthy BMI is between 19-25. To calculate Your BMI, you may use a Standard BMI Calculator on the NIH BMI website: <www.nhlbi.nih.gov/guidelines/obesity/BMI/bmicalc.htm>. Weigh oneself daily. If you are overweight, set a goal to lose weight. A pound a week loss if needed is a good target. (6) Reduce Blood Sugar. Limit foods and liquids with "added sugars." (Added sugars include sucrose, fructose, glucose, maltose, dextrose, high fructose corn syrup, corn syrup, concentrated fruit juice and honey). (7) Stop Smoking. If you smoke, quitting smoking is one of the best things that you can do for your health. Smoking increases your risk of heart attack, stroke, and peripheral vascular disease, which is a build-up of plaque in your arteries. Please discard all the cigarettes and lighters in your house. Have a plan for what you will do when you have the urge to smoke. Direct and second- hand smoke shortens your life as well as the lives of your family, friends and others around you. For your health and the health of those around you, please consider quitting! Proper Bending Body Mechanics: Maintain a wide stance with one foot slightly in front of the other. Keep your back straight. Bend utilizing the strength in your hips and knees. Do not bend at the waist. Maintain the lifted object at your waist-level close to your body. Avoid lifting weight that causes immediately pain or pain anywhere in the body afterwards. Smoking/Nicotine If there was ever one thing that you could do to increase your overall health, decrease your risk of cardiovascular problems by about 39% the second you make the choice, it is to STOP SMOKING. Your body's most instant gratification is the second you stop smoking. We have all heard the studies, read the articles but it is true, smoking is extremely bad for your overall health, and moreover it is detrimental to your bone health. Nicotine, IN ANY FORM, kills bone cells, prevents your body from healing fractures, and significantly prolongs healing after surgery. In spine surgery specifically, it increases your risk of not healing your bones to create a fus ion and increases your risk of having a revision surgery due to this up to 60%. I know it is hard. I know it feels impossible. But there are ways. Take control of your life. We are here to help you through it. And when you are ready, ask us and we can direct you to help if you desire. Use the START Plan to Quit Smoking (please visit the Helpguide.org website listed below for more information): S = Set a quit date. Choose a date within the next 2 weeks, so you have enough time to prepare without losing your motivation to quit. If you mainly smoke at work, quit on the weekend, so you have a few days to adjust to the change. T = Tell family, friends, and co-workers that you plan to quit. Let your friends and family in on your plan to quit smoking and tell them you need their support and encouragement to stop. Look for a quit juancarlos who wants to stop smoking as well. You can help each other get through the rough times. A = Anticipate and plan for the challenges you'll face while quitting. Most people who begin smoking again do so within the first 3 months. You can help yourself make it through by preparing ahead for common challenges, such as nicotine withdrawal and cigarette cravings. R = Remove cigarettes and other tobacco products from your home, car, and work. Throw away all your cigarettes (no emergency pack!), lighters, ashtrays, and matches. Wash your clothes and freshen up anything that smells like smoke. Shampoo your car, clean your drapes and carpet, and steam your furniture. T = Talk to your doctor about getting help to quit. Your doctor can prescribe medication to help with withdrawal and suggest other alternatives. If you can't see a doctor, you can get many products over the counter at your local pharmacy or grocery store, including the nicotine patch, nicotine lozenges, and nicotine gum. Resources for Quitting Smoking: <https://www.[place].gov/documents/[facility]/Quit_Tobacco_Resources_for_patients_31 3480_7.pdf> Supplementation: Take recommended dosages of Vitamin D and Calcium to help fortify your bones and help them to heal. See your health maintenance packet for dosages and recommend ed levels. DVT/VTE prophylaxis: You will be given compression stockings from the hospital. Wear these daily for the first two weeks after surgery. You may take them off at night. You may be prescribed a medication to help thin your blood. Take this as directed. If you are not prescribed this medication, early and frequent ambulation has been shown to be the best prophylaxis to deep vein thrombosis and sequelae related to this event. Discharge Disposition: HOME SELF-CARE
--- NOTE | 2024-10-27 11:31 | P.PN ---
Subjective Progress Note Date: 10/27/24 Subjective: Patient seen and examined at bedside. No acute events overnight. Claims that back pain has mostly resolved. Pertinent positives and negatives as discussed above, a complete review of systems was performed and all other systems are negative. Vitals Signs Reviewed. General: Nontoxic, no distress, appears at stated age Derm: Warm, dry, lumbar incision with no erythema or edema noted Head: Atraumatic, normocephalic, symmetric Eyes: EOMI, no lid lag, anicteric sclera Mouth: No lip lesion, mucus membranes moist Cardiovascular: S1S2 reg, no murmur Lungs: CTA bilateral, no rhonchi, no rales, no accessory muscle use Abdominal: Soft, nontender to palpation, no guarding, no appreciable organomegaly Ext: No gross muscle atrophy, no edema, no contractures Neuro: CN II-XI grossly intact, no focal neuro deficits Psych: Alert, oriented, appropriate affect Data Reviewed Today: Pertinent Labs: WBC 12.75, creatinine 0.6, sodium 137 Imaging: No new imaging Assessment and Plan: Active: Postoperative pain Status post lumbar laminoforaminotomy Postoperative seroma -Pain control per surgery Leukocytosis, likely reactive -Downtrending Hypertension Continue hydrochlorothiazide 25 daily Dyslipidemia -Continue atorvastatin 20 daily Patient is medically optimized Thank you for allowing us to participate in the care of this pleasant patient. Do not hesitate to contact us with questions. Someone can be reached from the [facility] hospitalist group all hours of the day at [phone] or via perfect serve. Objective - Vital Signs Vital signs: Vital Signs Temp 97.6 F 10/27/24 07:00 Pulse 91 10/27/24 07:00 Resp 16 10/27/24 07:00 BP 135/81 10/27/24 07:00 Pulse Ox 97 10/27/24 07:00 FiO2 Intake & Output 10/26/24 10/27/24 10/27/24 18:59 06:59 18:59 Intake Total 444 118 Balance 444 118 Weight 142.882 kg Intake: Oral 444 118 Other: Voiding Method Toilet # Voids 5 # Bowel Movements 3 - Labs CBC & Chem 7: 10/27/24 04:48 10/27/24 04:48 Labs: Abnormal Lab Results - Last 24 Hours (Table) 10/27/24 10/27/24 Range/Units 04:48 04:48 WBC 12.75 H (4.50-10.00) X 10*3/uL MPV 9.2 L (9.5-12.2) FL Immature Gran # 0.06 H (0.00-0.04) X 10*3/uL Neutrophils # 10.89 H (1.80-7.70) X 10*3/uL Eosinophils # 0 L (0.04-0.35) X 10*3/uL Glucose 250 H (70-110) mg/dL
== END 2024-10-27 14:10 | disposition home or self-care (01) ==
LOC: EC 22:03 → 6NMEDSUR 10-26 06:50
PROVIDERS: ADMIT Orthopaedic Surgery; ATTEND Orthopaedic Surgery
DX: G89.18 Other acute postprocedural pain (principal); L76.34 Postprocedural seroma of skin and subcutaneous tissue following other procedure; M54.50 Low back pain, unspecified; M79.604 Pain in right leg; M79.605 Pain in left leg; M19.90 Unspecified osteoarthritis, unspecified site; D72.829 Elevated white blood cell count, unspecified; E78.5 Hyperlipidemia, unspecified; F17.200 Nicotine dependence, unspecified, uncomplicated; I10 Essential (primary) hypertension; Z79.1 Long term (current) use of non-steroidal anti-inflammatories (NSAID); Z79.82 Long term (current) use of aspirin; Z79.899 Other long term (current) drug therapy; Z96.652 Presence of left artificial knee joint
CPT/HCPCS: 96376 ×3; 96372; 96374; 96375; 99285; 36415; 80053; 80048; 85025 ×2; 86140; 87040; 74018; 72131; G0378 ×2; J1100 ×3; J1171 ×2; J1885